=== PATIENT | female | born 1940 | race Caucasian/White ===

== ENCOUNTER → 2020-03-04 | Outpatient (CLI) | payer MEDICARE ==
[~2020-03-04] MED LIST: AMLODIPINE BESYL5 MG PO; APPLE CIDER VI300 MG; ASPIRIN325 MG PO; ASPIRIN81 MG; CALTRATE 600 W1 EACH; CLARITIN5 MG; LETROZOLE2.5 MG PO; MULTI-VITAMIN1 EACH; OSTEO BI-FLEX1 EACH; SIMVASTATIN40 MG PO; TART CHERRY CA1 EACH
--- NOTE | 2020-03-04 18:48 | Diagnostic Imaging Report ---
Bone Scan, three-phase and total body delayed imaging Reason for exam: 79 F with painful right knee prosthesis. Also pain in right hip and lower leg. Patient has history of breast cancer in 2014. Radiopharmaceutical: Tc-99m MDP 26.8 mCi IV LAC Comparison: None Following intravenous administration of the radiopharmaceutical, dynamic flow and immediate blood pool images of the knees followed by delayed total body and selected spot images were obtained. Flow and blood pool images show diffusely symmetric distribution of tracer activity to the to the knees with focal, very mild increased tracer along the tibial component of the right knee prosthesis . On the delayed images, very mildly increased tracer is also seen along the tibial component of the right knee prosthesis. There is no increased tracer activity in the adjacent soft tissues. Degenerative changes are noted in the left knee. The total body images show focal, markedly increased tracer in the right acetabulum. Otherwise, distribution of tracer activity is unremarkable throughout the skeletal system. No abnormal accumulation of tracer is seen in the soft tissues or urinary tract. Impression: 1. The very mild osteoblastic process surrounding the tibial component of the right knee prosthesis is likely physiologic. With absent increased tracer activity on the flow images, and no evidence of associated hyperemia, infection is unlikely, however, specificity of the finding could but increased with a labeled white blood cell study. 2. 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 This may be related to infection, inflammation (severe degenerative disease), post-traumatic changes or less likely, solitary bone metastasis. Correlative imaging may be warranted. Also consider referred pain in the right knee related to the changes in the right hip. Signed by: Dr. Rubi Goss M.D. on 03/04/2020 6:45 PM
== END ==
LOC: NM 10:39
PROVIDERS: ATTEND Specialist
DX: T84.092D Other mechanical complication of internal right knee prosthesis, subsequent encounter (principal)
CPT/HCPCS: 78306; A9503

== ENCOUNTER 2020-03-31 06:34 | Observation (INO) | payer MEDICARE, OTHER ==
[2020-03-27 10:27] LABS: BASOPHILS % 0.5 % (0.0-1.0); EOSINOPHILS % 0.7 % (0.0-6.0); HEMATOCRIT 36.2 % (34.2-44.1); HEMOGLOBIN 11.7 g/dL (12.0-16.0); LYMPHOCYTES # (AUTO) 1.8 (1.0-3.2); LYMPHOCYTES % 29.4 % (18.0-39.1); MEAN CORPUSCULAR HEMOGLOBIN 31.5 pg (28-32); MEAN CORPUSCULAR HGB CONC 32.3 g/dL (31-35); MEAN CORPUSCULAR VOLUME 97.3 fL (81-99); MONOCYTES # (AUTO) 0.4 (0.2-0.8); MONOCYTES % 5.9 % (4.4-11.3); NEUTROPHILS # (AUTO) 3.8 (2.1-6.9); NEUTROPHILS % 63.3 % (38.7-80.0); PLATELET COUNT 337 x10e3/uL (140-360); RED BLOOD COUNT 3.72 x10e6/uL (3.6-5.1); RED CELL DISTRIBUTION WIDTH 13.4 % (11.7-14.4)
--- NOTE | 2020-03-27 10:58 | Diagnostic Imaging Report ---
EXAMINATION: CHEST 2 VIEWS INDICATION: Pre-operative COMPARISON: None FINDINGS: LINES/TUBES:None LUNGS:The lungs are well-inflated. No focal consolidation or pulmonary edema. PLEURA:No pleural effusion or pneumothorax. MEDIASTINUM:The cardiomediastinal silhouette appears normal in size and shape. BONES/SOFT TISSUES:No acute osseous injury. Surgical clips at the right axilla. ABDOMEN:Large hiatal hernia. No free air under the diaphragm. IMPRESSION: No focal pneumonia or pulmonary edema. Large hiatal hernia. Signed by: Fredrick De La Torre MD on 03/27/2020 10:55 AM
[~2020-03-31 06:34] MED LIST changes: -CALTRATE 600 W1 EACH; +CALTRATE 600 W1 EACH PO; +HYDROXYCHLOROQ200 MG PO; +PREDNISONE5 MG PO
[2020-03-31] MEDS ORDERED: BACITRACIN 50,000 UNIT VIAL ONE (07:08)
[2020-03-31] MEDS ORDERED: VANCOMYCIN HCL 0 MG ONE (07:08)
[2020-03-31] MEDS ORDERED: TRANEXAMIC ACID 1,000 MG/10 ML ML ONE (07:09)
[2020-03-31] MEDS ORDERED: SODIUM CHLORIDE 0.9% 500ML 500 ML ONE (07:10)
[2020-03-31] MEDS ORDERED: DEXAMETHASONE SOD PHOS 10 MG/1 ML VIAL ONE (07:51)
[2020-03-31] MEDS ORDERED: CELECOXIB 200 MG CAP ONE (07:51)
[2020-03-31] MEDS ORDERED: GABAPENTIN 300 MG CAP ONE (07:52)
[2020-03-31] MEDS ORDERED: CEFAZOLIN SOD 1 GM/NS 50ML 100 ML IV ONE (07:52)
[2020-03-31] MEDS ORDERED: ROPIVACAINE 246.25 MG, EPINEPHRINE HCL 1:1000 1ML 0.5 MG, CLONIDINE HCL 0.08 MG, KETORO... INJ ONE ×5 (08:00)
[2020-03-31] MEDS ORDERED: BUPIVACAINE 7.5MG/ML /DEXTROSE 82.5MG/ML 2 ML AMP INJ ONE (08:31)
[2020-03-31] MEDS ORDERED: VANCOMYCIN HCL 500 MG ONE ×2 (11:13→11:15)
[2020-03-31] MEDS ORDERED: DIPHENHYDRAMINE HCL INJ 50 MG/ML VIAL IV PRN (12:00)
[2020-03-31] MEDS ORDERED: KETOROLAC TROMETHAMINE 30 MG/ML VIAL IV PRN (12:00)
[2020-03-31] MEDS ORDERED: ACETAMINOPHEN 650 MG SUPP PR PRN (12:00)
[2020-03-31] MEDS ORDERED: DOCUSATE SODIUM 100 MG CAP PO PRN (12:00)
[2020-03-31] MEDS ORDERED: HYDROCODONE/APAP 7.5MG-325MG 1 EA TAB PO PRN (12:00)
--- OUTSIDE RECORDS SUMMARY | 2020-03-31 13:23 | XMS REPORT ---
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
--- OUTSIDE RECORDS SUMMARY | 2020-03-31 13:23 | XMS REPORT | Clinical Summary ---
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 Active hydroxychloroquine Take 200 mg 0 (PLAQUENIL) 200 mg tablet by mouth daily. Active aspirin (ECOTRIN) 81 MG Take 81 mg by 0 enteric coated tablet mouth daily. Active loratadine (CLARITIN) 10 Take 10 mg by 0 mg tablet mouth daily. Active predniSONE (DELTASONE) 5 Take 5 mg by 0 mg tablet mouth daily. 09/12/2019 Discontinued (Stop Taking at Discharge) amLODIPine (NORVASC) 5 mg 1 tablet 9 09/12/2019 Discontinued (Stop Taking at Discharge) meloxicam (MOBIC) 15 mg TAKE 1 TABLET 2 tablet BY MOUTH ONCE 9 DAILY NEEDED WITH FOOD FOR 30 DAYS 05/16/2019 Discontinued (Error) meloxicam (MOBIC) 7.5 mg TAKE 1 TABLET 0 04/10 tablet BY MOUTH ONCE 9 DAILY NEEDED FOR PAIN 09/11/2019 Discontinued simvastatin (ZOCOR) 40 MG Take 40 mg by 1 05/0 tablet mouth 9 nightly. 08/10/2019 ciprofloxacin (CIPRO) 500 Take 1 tablet 14 tablet 0 MG tabletIndications: (500 mg 9 Urinary tract infection total) by without hematuria, site mouth 2 (two) unspecified times a day for 7 days. 08/24/2019 traMADol (ULTRAM) 50 mg Take 1 tablet 20 tablet 0 tabletIndications: acute (50 mg total) 9 pain by mouth every 6 (six) hours as needed for moderate pain for up to 10 days .Acute Pain. 09/11/2019 Discontinued UNABLE TO FIND Supplement 0 for dry eyes 08/22/2019 oxybutynin (DITROPAN) 5 Take 1 tablet 20 tablet 0 MG tablet (5 mg total) 9 by mouth 3 (three) times a day as needed for bladder spasms for up to 7 days. 08/19/2019 phenazopyridine Take 1 tablet 10 tablet 0 08/15/20 1 (PYRIDIUM) 200 MG tablet (200 mg 9 total) by mouth 3 (three) times a day as needed for bladder spasms (dysuria) for up to 4 days. 08/25/2019 acetaminophen-codeine Take 1 tablet 20 tablet 0 (TYLENOL WITH CODEINE #3) by mouth 9 300-30 mg per every 6 (six) tabletIndications: acute hours as pain needed for moderate pain for up to 10 days .Acute Pain. 09/15/2019 ciprofloxacin HCl (CIPRO) Take 1 tablet 6 tablet 0 250 MG tablet (250 mg 9 total) by mouth 2 (two) times a day for 3 days. Active Problems Problem Noted Date Dehydration 09/10/2019 Right ureteral stone 07/31/2019 Atrophic vaginitis 07/31/2019 Primary osteoarthritis of right hip 05/16/2019 Encounters Care Team Description Date Type Specialty Ginny Maddox RN 11/12/2019 Telephone Urology Te Delgado MD Dehydration (Primary Dx) 09/10/2019 Hospital General Internal Ny dicine - Encounter 09/12/2019 Te Delgado MD 09/10/2019 Orders Only General Internal Ny Eula Olivas MA Ureteral stone (Primary Dx) 08/30/2019 Orders Only General Surgery Ginny Maddox, ALISE 08/23/2019 Telephone Urology Eileen Green MD Su, Young, MD 08/15/2019 Anesthesia General Surgery Event Sam Rizzo MD CYSTO RIGHT URETEROSCOPY, LASER LITHOTR IPSY, RIGHT URETERAL STENT PLACEMENT 08/15/2019 Surgery General Surgery Rudi Molina MD Ureteral stone 08/15/2019 Hospital General Surgery Encounter Sam Rizzo MD Right ureteral stone (Primary Dx) 08/14/2019 Office Visit Urology Ginny Maddox RN Pain (Primary Dx) 08/14/2019 Orders Only Urology Sam Rizzo MD Right ureteral stone 08/03/2019 Hospital Radiology Encounter Ginny Maddox, ALISE 08/03/2019 Telephone Urology Ginny Maddox RN 08/03/2019 Telephone Urology Ginny Maddox RN Urinary tract infection without hematuri a, site unspecified (Primary Dx) 08/03/2019 Orders Only Urology Sam Rizzo MD Right ureteral stone (Primary Dx); Atrophic vaginitis 07/31/2019 Office Visit Urology Tato Duckworth MD Chronic pain of right knee (Primary Dx); Right hip pain; Primary osteoarthritis of right hip 05/16/2019 Office Visit Orthopedic Surgery after 03/31/2019 Social History Date Tobacco Use Types Packs/Day Years Used Never Smoker Smokeless Tobacco: Never Used Drinks/Week oz/Week Comments Alcohol Use Never Alcohol Habits Answer Date Recorded How often do you have a drink containing alcohol? Never 05/16/2019 How many drinks containing alcohol do you have on No t asked a typical day when you are drinking? How often do you have six or more drinks on one Not asked occasion? Sex Assigned at Date Recorded Not on file Industry Job Start Date Occupation Not on file Not on file Not on file Travel End Travel History Travel Start No recent travel history available. Last Filed Vital Signs Reading Time Taken Comments Vital Sign 136/64 09/12/2019 3:28 PM [facility] Blood Pressure 74 09/12/2019 3:28 PM [facility] Pulse 37.5 C (99.5 F) 09/12/2019 3:28 PM [facility] Temperature 16 09/12/2019 3:28 PM [facility] Respiratory Rate 95% 09/12/2019 3:28 PM [facility] Oxygen Saturation - - Inhaled Oxygen Concentration 70.8 kg (156 lb) 09/10/2019 6:23 PM [facility] Weight 162.6 cm (5' 4") 09/10/2019 6:23 PM [facility] Height 26.78 09/10/2019 6:23 PM [facility] Body Mass Index Plan of Treatment Health Maintenance Due Date Last Done Comments SHINGLES VACCINES (#1) 1988 65+ PNEUMOCOCCAL VACCINE 2003 (1 of 2 - PCV13) INFLUENZA VACCINE 05/31/2020 Implants Device Identifier Shelf Expiration Date Model / Serial / L ot Implanted Type Area Manufactur er 05/14/2022 192 133 / / [id number] Stent Uretl Polkari Ult 2drmtr 6fr Urological Right: Ureter , BSC 26cm Hydroplus W/O Gw - [id number] Implants [place] [facility] Implanted: Qty: 1 on 08/15/2019 by or Sets Sam Rizzo MD at [facility] Procedures Comments Procedure Name Priority Date/Time Associated Diag nosis HC ECHO 2-D F/UP LIMITED Routine 09/12/2019 6:07 PM [facility] ESTIMATED GFR STAT 09/12/2019 11:40 AM [facility] HC COMPLETE BLD COUNT STAT 09/12/2019 W/AUTO DIFF 11:40 AM [facility] BASIC METABOLIC PANEL STAT 09/12/2019 11:40 AM [facility] ARTERIAL BLOOD GAS Routine 09/12/2019 11:32 AM [facility] NM HEPATOBILIARY W PHARM STAT 09/12/2019 9:35 AM [facility] US GALLBLADDER STAT 09/11/2019 5:20 PM [facility] US RENAL Routine 09/11/2019 5:20 PM [facility] TTE COMPLETE, WO Routine 09/11/2019 CONTRAST, W DOPPLER 4:52 PM [facility] ([id number]) CT CHEST WO CONTRAST STAT 09/11/2019 10:02 AM [facility] GRAM STAIN Routine 09/11/2019 1:22 AM [facility] URINE CULTURE Routine 09/11/2019 1:22 AM [facility] SODIUM LEVEL, URINE, Routine 09/11/2019 RANDOM 1:02 AM [facility] CREATININE LEVEL, URINE, Routine 09/11/2019 RANDOM 1:02 AM [facility] PROTEIN, URINE, RANDOM Routine 09/11/2019 1:02 AM [facility] URINALYSIS SCREEN AND Routine 09/11/2019 MICROSCOPY, WITH REFLEX 1:02 AM [facility] TO CULTURE NM LUNG VENTILATION STAT 09/10/2019 PERFUSION 7:35 PM [facility] XR CHEST 2 VW Routine 09/10/2019 5:14 PM [facility] ESTIMATED GFR Routine 09/10/2019 3:45 PM [facility] TROPONIN Routine 09/10/2019 3:45 PM [facility] D-DIMER Routine 09/10/2019 3:45 PM [facility] B NATRIURETIC PEPTIDE Routine 09/10/2019 3:45 PM [facility] COMPREHENSIVE METABOLIC Routine 09/10/2019 PANEL 3:45 PM [facility] HC COMPLETE BLD COUNT Routine 09/10/2019 W/AUTO DIFF 3:45 PM [facility] ECG 12-LEAD Routine 09/10/2019 3:33 PM [facility] FL < 1 HOUR Routine 08/15/2019 3:11 PM CDT SURGICAL PATHOLOGY Routine 08/15/2019 REQUEST 2:33 PM CDT CALCULI ANALYSIS WITH Routine 08/15/2019 PHOTO 2:33 PM CDT ANESTHESIA INTUBATION Routine 08/15/2019 2:00 PM CDT ESTIMATED GFR STAT 08/15/2019 11:49 AM CDT PROTHROMBIN TIME WITH INR STAT 08/15/2019 11:49 AM CDT BASIC METABOLIC PANEL STAT 08/15/2019 11:49 AM CDT HC COMPLETE BLD COUNT STAT 08/15/2019 W/AUTO DIFF 11:49 AM CDT ECG PRE/POST OP STAT 08/15/2019 11:[address] RENAL STONE PROTOCOL Routine 08/03/2019 Right ureteral stone 10:11 AM CDT GRAM STAIN Routine 07/31/2019 10:59 AM CDT URINE CULTURE Routine 07/31/2019 Right ureteral stone 10:59 AM CDT XR HIP 2-3 VIEWS RIGHT Routine 05/16/2019 Right h ip pain 9:35 AM CDT XR KNEE 4+ VW RIGHT Routine 05/16/2019 Chronic pa in of right 8:57 AM CDT knee XR LEG LENGTH EVALUATION Routine 05/16/2019 Chron ic pain of right 8:57 AM CDT knee after 03/31/2019 Results * Cv echo 2d limited or follow up study (09/12/2019 6:07 PM [facility]) BSA Mckinnon 1.79 m2 [facility] BSA 1.75 m2 [facility] BSA Haycock 1.78 m2 [facility] BMI 24.96 kg/m2 [facility] Pt Size 165.10 [facility] Pt Wt 68.04 [facility] MAX Pred HR 138.59 [facility] 85 of MPHR 117.80 [facility] Calc MPHR 138.59 bpm [facility] Pred Exer Dur 5.59 [facility] R1 Pred METS R1 4.12 [facility] Specimen Narrative Performed At This result has an attachment that is n ot available. Performing Organization Address City/State/Zipcode Ph one Number [facility] [address] [place] [address], * Estimated GFR (09/12/2019 11:40 AM [facility]) Only the most recent of 3 results within the time period is included. Estimated GFR 85 mL/min/1.73 m2 [place] Comment: [place] Catergory Units [facility] G1 >=90 Normal or high G2 60-89 Mildly decreased G3a 45-59 Mildly to moderately decreased G3b 30-44 Moderately to severely decreased G4 15-29 Severely decreased G5 <15 Kidney failure The eGFR was calculated using the Chronic Kidney Disease Epidemiology Collaboration (CKD-EPI) equation. Interpretation is based on recommendations of the National Kidney Foundation-Kidney Disease Outcomes Quality Initiative (NKF-KDOQI) published in 2014. Specimen Plasma specimen Performing Organization Address City/State/[facility] Ph one Number [facility] [address] [place] [address] [address] [facility] [address] [place] [address] HOSPITAL * CBC with platelet and differential (09/12/2019 11:40 AM [facility]) Only the most recent of 3 results within the time period is included. WBC 4.6 4.2 - 11.0 k/uL [facility] RBC 3.69 (L) 4.04 - 5.86 m/uL [facility] HGB 11.3 (L) 11.5 - 15.3 g/dL [facility] HCT 35.6 34.0 - 45.0 % [facility] MCV 96.5 80.0 - 98.0 fL [facility] MCH 30.6 27.0 - 34.0 pg [facility] MCHC 31.7 31.5 - 36.5 g/dL [facility] RDW - SD 46.1 37.0 - 51.0 fL [facility] MPV 9.6 7.4 - 10.4 fL [facility] Platelet count 278 150 - 400 k/uL [facility] Nucleated RBC 0.00 /100 WBC [facility] Neutrophils 56.1 36.0 - 66.0 % [facility] Lymphocytes 32.8 24.0 - 44.0 % [facility] Monocytes 8.7 (H) 0.0 - 6.0 % [facility] Eosinophils 0.0 0.0 - 6.0 % [facility] Basophils 1.1 0.0 - 1.2 % [facility] Immature 1.3 (H) 0.0 - 1.0 % [place] granulocytes [facility] Specimen Blood Performing Organization Address City/State/Zipcode Ph one Number [facility] [address] [place] [address] [address] [facility] [address] [place] [address] * Basic metabolic panel (09/12/2019 11:40 AM [facility]) Only the most recent of 2 results within the time period is included. Sodium 142 135 - 150 mEq/L [facility] Potassium 3.6 3.5 - 5.0 mEq/L [facility] Chloride 107 98 - 112 mEq/L [facility] CO2 23 (L) 24 - 31 mmol/L [facility] Anion gap 12@ANIO 7 - 15 mEq/L [facility] BUN 11 7 - 18 mg/dL [facility] Creatinine 0.60 0.50 - 0.90 mg/dL [facility] Glucose 104 (H) 65 - 100 mg/dL [facility] Calcium 9.6 8.8 - 10.2 mg/dL [facility] Specimen Plasma specimen Performing Organization Address City/State/Zipcode Ph one Number [facility] [address] [place] [address] PATHOLOGY AND GENOMIC MEDICINE [address] * Arterial blood gas (09/12/2019 11:32 AM [facility]) pH, arterial 7.480 (H) 7.350 - 7.450 units [facility] pCO2, arterial 36.2 35.0 - 45.0 mmHg [facility] pO2, arterial 90.6 (H) 80.0 - 90.0 mmHg [facility] O2 saturation, 98.4 95.0 - 100.0 % [facility] Base excess, 3.4 mEq/L [facility] Bicarbonate 26.9 21.0 - 28.0 mEq/L [facility] O2 content 15.2 VOL% [facility] FiO2, inspired 21.0 % [place] O2% [facility] Carboxyhemoglob 0.5 0.0 - 1.4 % [place] in Comment: [place] Reference Ranges: [place] Carboxyhemoglobin [facility] Non smoker: 0.0 - 2.0% Smoker: 2.1 - 5.0% Heavy smoker: 5.1 - 9% Methemoglobin 0.6 0.0 - 1.0 % [facility] Hemoglobin, 11.0 (L) 12.0 - 16.0 g/dL [place] blood gas [facility] pO2, A-a 19.7 mmHg [facility] Specimen Blood Performing Organization Address City/State/[facility] Ph one Number [facility] [address] [address] [address] [facility] [address] * [place] Hepatobiliary W Pharm (HIDA Scan w Pharm) (09/12/2019 9:35 AM [facility]) Specimen Narrative Performed At PROCEDURE: NM HEPATOBILIARY W PHARM (HIDA SCAN W PH ARM) [facility] INDICATION: Cholelithiasis. TECHNIQUE: The patient was injected wit h 5 mCi of Tc-99m mebrofenin (Choletec), IV, followed by dynamic imaging of the abdomen in the anterior projection for 1 hour. The patient was then given a 60 m inute intravenous infusion of CCK 1.5 ug while dynamic imaging of the abdomen was performed; t hese images were used to calculate the gallbladder ejection fraction. FINDINGS: Hepatocellular uptake is norm al, with normal excretion into the biliary tree. Tracer is seen within [facility] gallbladder and small bowel by one hour. After CCK infusion, there is no rmal contraction of the gallbladder. Gallbladder ejection fraction is 40%, (normal is greater than 30%). IMPRESSION: 1. No evidence for acute cholecystitis, cystic duct obstruction, or common bile duct obstruction. 2. Normal gallbladder ejection fraction . [id number] Dictated and approved by radiology resi dent/fellow: Pedro Fraser M.D. I, Britton Mathew, personally reviewed t images and resident's/fellow's findings and agree with the final repor t. Procedure Note Interface, Radiology Results Incoming - 09/12/2019 10:38 AM [facility] PROCEDURE: NM HEPATOBILIARY W PHARM (HIDA SCAN W PHARM) INDICATION: Cholelithiasis. TECHNIQUE: The patient was injected with 5 mCi of Tc-99m mebrofenin (Choletec), IV, followed by dynamic imaging of the abdomen in the anterior projection for 1 hour. The patient was then given a 60 minute intravenous infusion of CCK 1.5 ug while dynamic imaging of the abdomen was performed; these images were used to calculate the gallbladder ejection fraction. FINDINGS: Hepatocellular uptake is normal, with normal excretion into the biliary tree. Tracer is seen within the gallbladder and small bowel by one hour. After CCK infusion, there is normal contraction of the gallbladder. Gallbladder ejection fraction is 40%, (normal is greater than 30%). IMPRESSION: 1. No evidence for acute cholecystitis, cystic duct obstruction, or common bile duct obstruction. 2. Normal gallbladder ejection fraction. [facility]-[id number] Dictated and approved by executive vice president of sales/fellow: Pedro Fraser M.D. I, Britton Mathew, personally reviewed the images and resident's/fellow's findings and agree with the final report. Performing Organization Address City/State/[facility] Ph one Number [facility] [address] [place] [address] * US Gallbladder (09/11/2019 5:20 PM [facility]) Specimen Narrative Performed At Examination: [facility] Clinical history: Cholelithiasis Comparison: None IMPRESSION: Transverse and longitudin al sonographic images were obtained through the gallbladder fossa. 1. Stones and sludge are present with in an otherwise normal-appearing gallbladder without pericholecystic flu id or gallbladder wall thickening. 2. The common duct is within normal l imits at 5mm 3. The portal vein is patent. Gallbladder measurement guidelines *Gallbladder distention: Greater than 9 x 4 cm (longitudinal by transverse dimension) *Wall thickening: Greater than 3 mm *Common bile duct dilatation: Greater t robbins 6 mm (allowing 1 additional millimeter for each decade of age great er than 60 years) *Common bile duct dilatation status pos t cholecystectomy: Greater than 10 mm *Portal vein dilatation: Greater than 1 .3 cm (measurements are variable and dependent upon hydration status and res piration) [facility]-[id number] Procedure Note Interface, Radiology Results Incoming - 09/11/2019 5:36 PM [facility] Examination: US GALLBLADDER Clinical history: Cholelithiasis Comparison: None IMPRESSION: Transverse and longitudinal sonographic images were obtained through the gallbladder fossa. 1. Stones and sludge are present within an otherwise normal-appearing gallbladder without pericholecystic fluid or gallbladder wall thickening. 2. The common duct is within normal santiago its at 5mm 3. The portal vein is patent. Gallbladder measurement guidelines *Gallbladder distention: Greater than 9 x 4 cm (longitudinal by transverse dimension) *Wall thickening: Greater than 3 mm *Common bile duct dilatation: Greater than 6 mm (allowing 1 additional millimeter for each decade of age greater than 60 years) *Common bile duct dilatation status post cholecystectomy: Greater than 10 mm *Portal vein dilatation: Greater than 1.3 cm (measurements are variable and dependent upon hydration status and respiration) [facility]-[id number] Performing Organization Address City/State/Zipcode Ph one Number [facility] [address] [place] [address] * US Renal (09/11/2019 5:20 PM [facility]) Specimen Narrative Performed At EXAMINATION: US RENAL [facility] CLINICAL HISTORY: Renal failure acu te (kidney injury) COMPARISON: None. FINDINGS: The kidneys are normal in size and echo genicity. There is no evidence of any solid renal mass, calculi, or hydroneph rosis. The right kidney measures 10.56 cm X 5.59 cm X 4.57 cm The left kidney measures 10.84 cm X 5.67 cm X 5.35 cm. There is a 1.4 cm cyst seen within the left kidney. The bladder is decompressed at the time of examination. IMPRESSION: 1.The kidneys of normal size and echote xture. 2. There is no hydronephrosis nor any s olid renal mass. 3. There is a simple 1.4 cm cyst seen w ithin the left kidney. 4. The bladder is decompressed at the t kirt of examination. [id number] Procedure Note Hm Interface, Radiology Results Incoming - 09/11/2019 8:34 PM [facility] EXAMINATION: US RENAL CLINICAL HISTORY: Renal failure acute (kidney injury) COMPARISON: None. FINDINGS: The kidneys are normal in size and echogenicity. There is no evidence of any solid renal mass, calculi, or hydronephrosis. The right kidney measures 10.56 cm X 5.59 cm X 4.57 cm The left kidney measures 10.84 cm X 5.67 cm X 5.35 cm. There is a 1.4 cm cyst seen within the left kidney. The bladder is decompressed at the time of examination. IMPRESSION: 1.The kidneys of normal size and echotex ture. 2. There is no hydronephrosis nor any so lid renal mass. 3. There is a simple 1.4 cm cyst seen wi thin the left kidney. 4. The bladder is decompressed at the ti me of examination. [id number] Performing Organization Address City/State/Zipcode Ph one Number [facility] [address] [place] [address] * Echocardiogram complete w contrast and 3D if needed (09/11/2019 4:52 PM [facility]) Ao Root 3.57 cm [facility] Diameter AoV Area, Vmax 2.92 cm2 [facility] AoV Area, VTI 3.11 cm2 [facility] AoV Mean PG 3.18 mmHg [facility] AoV Peak PG 6.29 mmHg [facility] AoV Vmax 1.26 m/s [facility] AoV VTI 0.27 m [facility] BSA Mckinnon 1.79 m2 [facility] BSA 1.75 m2 [facility] IVS,d 1.35 cm [facility] IVS/LVPW,2D 1.04 [facility] Left Atrium 3.40 cm [facility] Dimension Anterior LV,d 4.05 cm [facility] LV EF,2D 57.91 % [facility] LV,s 3.04 cm [facility] LVOT area 3.46 cm2 [facility] LVOT Diam,S 2.10 cm [facility] LVOT Vmax 1.08 m/s [facility] LVOT VTI 0.24 m [facility] LVPWD,d 1.29 cm [facility] PV Pk Grad 4.47 mmHg [facility] PV VMAX 1.06 m/s [facility] TR Vpeak 2.29 mm/s [facility] MV E A ratio 0.62 [facility] TR pk grad 19.70 mmHg [facility] AoV area i VTI 1.78 cm2/m2 [facility] BSA [place] BMI 24.96 kg/m2 [facility] E wave 131.48 msec [facility] decelartion time MV Peak A Boris 1.29 m/s [facility] MV valve area p 3.81 cm2 [facility] 1/2 method MV Peak E Boris 0.73 m/s [facility] MV stenosis 57.74 ms [facility] pressure 1/2 time AV LVOT peak 4.47 mmHg [facility] gradient Ascending aorta 3.74 cm [facility] Ao Root 3.57 cm [facility] Diameter LV SYS VOL 36.08 ml [facility] LV [place] VOL 72.24 ml [facility] LV SI Teich 2D 20.65 ml/m2 [facility] LV SV Teich 2D 36.15 ml [facility] LV Vol s Teich 36.08 ml [facility] PSAX LVOT SI 47.23 ml/m2 [facility] BSA Haycock 1.78 m2 [facility] AoV Vmn 0.83 [facility] IVS s 2D 1.59 [facility] LV FS Teich 2D 25.06 [facility] MV AE ratio 1.62 [facility] LV FS Cube 2D 25.06 [facility] LVOT Vmn 0.78 [facility] Pt Size 165.10 [facility] Pt Wt 68.04 [facility] Aov area Vmn 3.11 cm2 [facility] LA A_P score P 1.67 [facility] LVOT mean grad 2.69 mmHg [facility] MAX Pred HR 138.59 [facility] 85 of MPHR 117.80 [facility] AoV area I VMN 1.78 cm2/m2 [facility] bsa Calc MPHR 138.59 bpm [facility] IVS pct thck 18.07 % [facility] PLAX LV SI Cube 2D 22.03 ml/m2 [facility] LV SV Cube 2D 38.57 ml [facility] LV vol d cube 66.60 ml [facility] 2D LV vol s cube 28.03 ml [facility] 2D LVPW pct thck 24.34 % [facility] PLAX LVPW s PLAX 1.61 cm [facility] MV Decel slope 5.52 m/s2 [facility] Pred Exer Dur 5.59 [facility] R1 Pred METS R1 4.12 [facility] LA Vol MOD A4C 64.11 ml [facility] Velocity Ratio 0.86 m/s [facility] (V1/V2) EF 50.06 % [facility] E/A ratio 0.57 [facility] Specimen Narrative Performed At [facility] Left ventricular systolic function i s normal. There is mild left ventricular reji ntric hypertrophy. Left Ventricular ejection fraction i s 55 - 60%. Left atrium size is mildly dilated. Spectral Doppler shows impaired rela xation pattern of left ventricular diastolic filling. Performing Organization Address City/State/Zipcode Ph one Number [facility] [address] [place] [address], [place] * CT Chest Wo Contrast (09/11/2019 10:02 AM [facility]) Specimen Narrative Performed At EXAMINATION: [facility] CT CHEST WO CONTRAST CLINICAL HISTORY: Acute resp illness 38 years old TECHNIQUE: Multiple axial images of t he chest were obtained without intravenous contrast. The lack of intra venous contrast reduces the sensitivity of detecting solid organ disease and ev aluating vasculature. Sagittal and coronal computerized reformatted images were also obtained. CT imaging w as performed with iterative reconstruction techniques and/or automa aiden exposure control to reduce radiation dose. COMPARISON: To a chest x-ray from 09/10/2019 IMPRESSION: 1.Postoperative changes involving the r ight breast are present. 2.Gallstones noted within the gallbladd er, without evidence of biliary ductal dilatation. A large hiatal hernia is pr esent. 3.No evidence of hilar or mediastinal l ymphadenopathy. The partially visualized right kidney demonstrates pyelectasis. Fibrotic changes presumably related to radiation are noted in the right lung a pex. 4.Some minimal bronchiectasis is presen t in both lung bases. The lungs otherwise are clear. 5.The bones are moderately osteopenic a nd moderate wedge compression is noted involving a lower thoracic vertebral armida dy. [id number] Procedure Note Interface, Radiology Results Incoming - 09/11/2019 10:07 AM HELP AID EXAMINATION: CT CHEST WO CONTRAST CLINICAL HISTORY: Acute resp illness 38 years old TECHNIQUE: Multiple axial images of the chest were obtained without intravenous contrast. The lack of intravenous contrast reduces the sensitivity of detecting solid organ disease and evaluating vasculature. Sagittal and coronal computerized reformatted images were also obtained. CT imaging was performed with iterative reconstruction techniques and/or automated exposure control to reduce radiation dose. COMPARISON: To a chest x-ray from 09/10/2019 IMPRESSION: 1.Postoperative changes involving the ri ght breast are present. 2.Gallstones noted within the gallbladde r, without evidence of biliary ductal dilatation. A large hiatal hernia is present. 3.No evidence of hilar or mediastinal ly mphadenopathy. The partially visualized right kidney demonstrates pyelectasis. Fibrotic changes presumably related to radiation are noted in the right lung apex. 4.Some minimal bronchiectasis is present in both lung bases. The lungs otherwise are clear. 5.The bones are moderately osteopenic an d moderate wedge compression is noted involving a lower thoracic vertebral body. [id number] Performing Organization Address [facility] Ph one Number [facility] [address] [place] [address] * Gram stain (09/11/2019 1:22 AM HELP AID) Only the most recent of 2 results within the time period is included. Gram stain No WBC's or organisms seen. MORLEY result Comment: MORMON Specimen Information HOSPITAL Specimen Source: Urine Specimen Site: Clean catch Specimen Urine Performing Organization Address [facility] one Number [facility] DEPARTMENT OF [address] [place] [address] PATHOLOGY AND GENOMIC MEDICINE [address] * Urine culture (09/11/2019 1:22 AM HELP AID) Only the most recent of 2 results within the time period is included. Urine culture Mixed brenda <=10-3 col/cc (A) MARTINEZ isolate Comment: MORMON Specimen Information HOSPITAL Specimen Source: Urine Specimen Site: Clean catch Urine culture Pseudomonas aeruginosa TYSON isolate 10-4 cfu/ml MORMON [facility] HOSPITAL characteristics of this assay on this isolate were validated by the Microbiology Laboratory at [facility]. This source has not been approved by the U.S. Food and Drug Administration. The results are not intended to be used as the sole means for clinical diagnosis or patient management. The Microbiology Laboratory is authorized under the clinical Laboratory Improvement Amendments of 1988 (CLIA-88) to perform high complexity testing. (A) Specimen Urine Antibiotic Method Susceptibility Organism Amikacin GRISELDA <=4 mcg/mL: Susceptible Pseudomonas aeruginosa Aztreonam GRISELDA 2 mcg/mL: Susceptible Pseudomonas aeruginosa Ceftazidime GRISELDA 1 mcg/mL: Susceptible Pseudomonas aeruginosa Ciprofloxacin GRISELDA <=0.5 mcg/mL: Susceptible Pseudomonas aeruginosa Cefepime GRISELDA <=0.5 mcg/mL: Susceptible Pseudomonas aeruginosa Gentamicin GRISELDA 2 mcg/mL: Susceptible Pseudomonas aeruginosa Imipenem GRISELDA 1 mcg/mL: Susceptible Pseudomonas aeruginosa Levofloxacin GRISELDA <=1 mcg/mL: Susceptible Pseudomonas aeruginosa Meropenem GRISELDA <=0.125 mcg/mL: Susceptible Pseudomonas aeruginosa Tobramycin GRISELDA <=0.5 mcg/mL: Susceptible Pseudomonas aeruginosa Piperacillin/Tazobactam GRISELDA 4/4 mcg/mL: Susceptible Pseudomonas aeruginosa Performing Organization Address City/State/Zipcode Ph one Number [facility] DEPARTMENT OF [address] [place] [address] PATHOLOGY AND GENOMIC MEDICINE [place] [id number] [place] [id number] HOSPITAL * Urinalysis screen and microscopy, with reflex to culture (09/11/2019 1:02 AM HELP AID) Specimen site Clean catch [facility] Color, UA Colorless [facility] Appearance, UA Clear [facility] Specific 1.003 1.001 - 1.035 MORLEY gravity, [facility] pH, UA 6.0 5.0 - 8.5 [facility] Protein, UA Negative Negative [facility] Glucose, UA 1+ (A) Negative [facility] Ketones, UA Negative Negative [facility] Bilirubin, UA Negative Negative [facility] Blood, UA Negative Negative [facility] Nitrite, UA Negative Negative [facility] Urobilinogen, Negative <2.0 [facility] Leukocyte Moderate (A) Negative [place] esterase, UA [facility] Epithelial Few /HPF MORLEY cells, UA [facility] WBC, UA 10 (A) 0 - 5 /HPF [facility] RBC, UA 1 0 - 5 /HPF [facility] Bacteria, UA None seen None seen [facility] Yeast, UA None seen [facility] Yeast with None seen [facility] Specimen Urine Performing Organization Address City/State/Ziplade Ph one Number [facility] DEPARTMENT OF [address] [place] [address] [facility] [address] [place] [address] HOSPITAL * Sodium level, urine, random (09/11/2019 1:02 AM HELP AID) Sodium, urine, 31 (A) mEQ/L [facility] Specimen Urine Performing Organization Address City/[facility] Ph one Number [facility] DE[facility] OF [address] [place] [address] [address] [facility] [address] * Protein, urine, random (09/11/2019 1:02 AM HELP AID) Protein, urine 5 (A) mg/dL [facility] Specimen Urine Performing Organization Address City/[facility] Ph one Number [facility] DE[facility] OF [address] [place] [address] PATH[address] MEDICINE [facility] [address] * Creatinine level, urine, random (09/11/2019 1:02 AM HELP AID) Creatinine, 29 mg/dL [facility] Urine Performing Organization Address City/[facility] Ph one Number [facility] DEPARTMENT OF [address] [place] [address] [address]IC[address] [facility] [address] [place] [address] * NM Lung Ventilation Perfusion (09/10/2019 7:35 PM HELP AID) Specimen Narrative Performed At PROCEDURE: NM LUNG VENTILATION PERFUSION [facility] INDICATION: PE suspected. COMPARISON: CXR dated same day 1701. TECHNIQUE: Planar ventilation images were acquired after the inhalation of 15 mCi of Xe-133 gas. Planar perfusion vince ges were acquired after the IV administration of 5 mCi of Tc-99m MAA. FINDINGS: Small to moderate sized, ma tched defects in the lung periphery. No mismatched defects. Prominent renal a nd visceral uptake. IMPRESSION: 1. Low probability for PE. 2. Possible right to left shunt. [facility]-[id number] Procedure Note Interface, Radiology Results Incoming - 09/10/2019 9:55 PM HELP AID PROCEDURE: NM LUNG VENTILATION PERFUSION INDICATION: PE suspected. COMPARISON: CXR dated same day 1701. TECHNIQUE: Planar ventilation images were acquired after the inhalation of 15 mCi of Xe-133 gas. Planar perfusion images were acquired after the IV administration of 5 mCi of Tc-99m MAA. FINDINGS: Small to moderate sized, matched defects in the lung periphery. No mismatched defects. Prominent renal and visceral uptake. IMPRESSION: 1. Low probability for PE. 2. Possible right to left shunt. [facility]-[id number] Performing Organization Address [facility] Ph one Number [facility] [address] [place] [address] * XR Chest 2 Vw (09/10/2019 5:14 PM HELP AID) Specimen Narrative Performed At EXAMINATION: [facility]: Vega XR CHEST 2 VW images are submitted COMPARISON: NONE FINDINGS: Surgical clips projecting over right ch est port. Heart and mediastinum: Tortuous thora cic aorta. Hiatal hernia. Lungs: The lungs are well inflated an d clear. There is no evidence of pneumonia or pulmonary edema. Pleura: There is no pleural effusion or pneumothorax. Bones: Age-indeterminate L1 and L2 co mpression fractures. IMPRESSION: 1. Negative for acute cardiopulmonary d isease. 2. Hiatal hernia. 2. Age-indeterminate compression fractu re of L1 and L2. [id number] Procedure Note [facility], Radiology Results Incoming - 09/10/2019 5:57 PM HELP AID EXAMINATION: XR CHEST 2 VW CLINICAL HISTORY: Vega XR CHEST 2 VW images are submitted COMPARISON: NONE FINDINGS: Surgical clips projecting over right chest port. Heart and mediastinum: Tortuous thoracic aorta. Hiatal hernia. Lungs: The lungs are well inflated and clear. There is no evidence of pneumonia or pulmonary edema. Pleura: There is no pleural effusion or pneumothorax. Bones: Age-indeterminate L1 and L2 compression fractures. IMPRESSION: 1. Negative for acute cardiopulmonary di sease. 2. Hiatal hernia. 2. Age-indeterminate compression fractur e of L1 and L2. [facility]-[id number] Performing Organization Address [facility] one Number [facility] [address] [place] [address] * Troponin (09/10/2019 3:45 PM HELP AID) Troponin 0.015 0.000 - 0.040 ng/mL MORLEY Comment: MOR[facility] changed methodology effective: HOSPITAL 03/06/2019 at 10:00 am The new method has a 99th percentile cutoff of 0.040 ng/mL Specimen Plasma specimen Performing Organization Address City/[facility] Ph one Number [facility] DE[facility]MENT OF [address] [place] [address] [facility] [address] * D-dimer (09/10/2019 3:45 PM HELP AID) [facility] D-dimer 3.22 (H) 0.00 - 0.40 ug/mL MORLEY Comment: FEU MORMON Units are ug/ml Fibrinogen MONTICELLO Equivalent Unit. [facility] When combined with low clinical probability, D-dimer results of less than 0.5 ug/ml FEU have a good negative predictive value in excluding PE or DVT. For D-dimer results greater than 0.5 ug/ml FEU further testing is indicated if PE or DVT is suspected clinically. Elevated D-dimer results have been reported in DVT, PE, and DIC cases and may indicate the presence of a clot. D-dimer results may be elevated due to old age, , inflammatory diseases, trauma, post-operative states, sepsis, and malignancies. Specimen Blood Performing Organization Address [facility] Ph one Number [facility] DE[facility] OF [address] [place] [address] [address] [facility] [address] * B natriuretic peptide (09/10/2019 3:45 PM HELP AID) [facility] BNP 59 0 - 100 pg/mL [facility] Specimen Blood Performing Organization Address City/[facility] Ph one Number [facility] DEPARTMENT OF [address] [address] [address] [facility] [address] * Comprehensive metabolic panel (09/10/2019 3:45 PM HELP AID) [facility] Sodium 140 135 - 150 mEq/L [facility] Potassium 3.6 3.5 - 5.0 mEq/L [facility] Chloride 103 98 - 112 mEq/L [facility] CO2 24 24 - 31 mmol/L [facility] Anion gap 13@ANIO 7 - 15 mEq/L [facility] BUN 18 7 - 18 mg/dL [facility] Creatinine 1.20 (H) 0.50 - 0.90 mg/dL [facility] Glucose 96 65 - 100 mg/dL [facility] Calcium 10.3 (H) 8.8 - 10.2 mg/dL [facility] Protein 6.6 6.3 - 8.3 g/dL [facility] Albumin 3.1 (L) 3.5 - 5.0 g/dL [facility] A/G ratio 0.9 0.7 - 3.8 [facility] Alkaline 53 0 - 104 U/L [place] phosphatase [facility] AST 27 10 - 35 U/L [facility] ALT 13 5 - 50 U/L [facility] Total bilirubin 0.3 0.2 - 1.2 mg/dL [facility] Specimen Plasma specimen Performing Organization Address City/[facility] Ph one Number [facility] DE[facility] OF [address] [place] [place] [address] PATHOLOGY AND GENOMIC MEDICINE [address] * ECG 12 lead (09/10/2019 3:33 PM HELP AID) Ventricular 69 [facility] rate Atrial rate 69 [facility] MN interval 162 [facility] QRSD interval 94 [facility] QT interval 432 [facility] QTC interval 462 [facility] P axis 1 33 [facility] QRS axis 1 1 [facility] T wave axis 6 [facility] EKG impression Sinus rhythm with premature [facility] MUSE atrial complexes-Voltage criteria for left ventricular hypertrophy-Inferior infarct , age undetermined-Abnormal ECG-In automated comparison with ECG of 15-AUG-2019 11:41,-premature atrial complexes are now present- Specimen Narrative Performed At This result has an attachment that is n ot available. Performing Organization Address City/[facility]/Zipcode Ph one Number [facility] MUSE [address] [place] [address] * [place] < 1 Hour (08/15/2019 3:11 PM CDT) Specimen Narrative Performed At IMPRESSION: C-armFluoroscopy under 1 hour was provi ded in the OR forthe [facility] referring physician. A radiologist wa s not present during the procedure. Refer to the Operative report issued by the p erforming provider for procedure details. Procedure Note Interface, Radiology Results Incoming - 08/15/2019 3:15 PM CDT IMPRESSION: C-armFluoroscopy under 1 hour was provided [facility] the [facility]. A radiologist was not present during the procedure. Refer to the Operative report issued by the performing provider for procedure details. Performing Organization Address City/State/[facility] Ph one Number [facility] [address] [place] [address] * Calculi analysis with photo (08/15/2019 2:33 PM CDT) Calculi mass 24 mg [facility] Calculi number 3 [facility] Calculi size Various mm [facility] Calculi See Note [facility] descrption Comment: Specimen consists of three, various sized (1 mm to 9 mm), brown/tilley, irregular calculi fragments. Calculi See Note [facility] composition Comment: Calculi composed primarily of: 10% calcium oxalate monohydrate, 80% calcium oxalate dihydrate, and 10% calcium phosphate (hydroxy- and carbonate- apatite). INTERPRETIVE INFORMATION: Calculi (Stone) analysis Calculi are the products of physiological processes that yield crystalline compounds in a matrix of biological compounds and blood. Matrix components are not reported. The clinically significant crystalline components identified in calculi specimens are reported. Gross description may not be consistent with composition determined by FTIR analysis. EER calculi See Note [facility] (stone) Comment: analysis and Access [employer] Enhanced Report photo using either link below: -Direct access: [email or web address] -Enter Username, Password: [email or web address] Username: [email or web address] Password: [email or web address] Performed by [employer], [address] [place] [address],[place] [address] [email or web address], Alberto Mahmood MD, Lab. Director Specimen Serum Narrative Performed At [id number] [facility] URETER STONES Performing Organization Address City/[facility]ode Ph one Number [facility] [address] [place] [address] HM [facility] [address] [place] [address] * Surgical pathology request (08/15/2019 2:33 PM CDT) [facility] OF PATHOLOGY AND GENOMIC MEDICINE Surgical See link below for PDF Lab [facility] DEPAR TMENT pathology Report OF PATHOLOGY report AND GENOMIC MEDICINE Result status This is Final Report for [facility] DE[facility] ENT [id number] OF PATHOLOGY AND GENOMIC MEDICINE Specimen Performing Organization Address [facility] Ph one Number [facility] DEPARTMENT OF [facility] [place] [address] PATHOLOGY AND GENOMIC MEDICINE * Airway (08/15/2019 2:00 PM CDT) Narrative Performed At Chase Chacko CRNA 2:01 PM Airway Performed by: Chase Chacko CRNA Authorized by: Chase Chacko CRNA Final Airway Type: Supraglottic airwa y Final LMA: Unique LMA Size: 4 Number of Attempts at Approach: 1 * Prothrombin time with INR (08/15/2019 11:49 AM CDT) Prothrombin 13.0 11.5 - 14.5 sec [facility] INR 1.01 [place]ORLEY Comment: MORMON For patients on anticoagulant MONTICELLO therapy, reference ranges HOSPITAL below: Indication: INR Value Treatment of Venous Thrombosis, 2.0-3.0 pulmonary emboli, or prophylaxis of a venous thrombosis, or systemic emboli. High dose, high risk patients 3.0-4.5 with mechanical valves. NOTE: INR values over 3.0 are sometimes associated with gastrointestinal hemorrhage, especially values over 4.0. Specimen Blood Performing Organization Address [facility] Ph one Number [facility] DEPARTMENT OF [address] [place] [address] [address] [facility] [address] [place] [address] [facility] * ECG Pre/Post Op (08/15/2019 11:41 AM CDT) Ventricular 76 [facility] rate Atrial rate 76 [facility] MN interval 160 [facility] QRSD interval 88 [facility] QT interval 424 [facility] QTC interval 477 [facility] P axis 1 33 [facility] QRS axis 1 -4 [facility] T wave axis 17 [facility] EKG impression Normal sinus rhythm-Minimal [facility] voltage criteria for LVH, may be normal variant-Possible Anterior infarct , age undetermined-Abnormal ECG-No previous ECGs available- Specimen Narrative Performed At This result has an attachment that is n ot available. Performing Organization Address City/State/Zipcode Ph one Number [facility] [address] [place] [address] * CT Renal Stone Protocol (08/03/2019 10:11 AM CDT) Specimen Narrative Performed At EXAMINATION: CT RENAL STONE PROTOCOL [facility] CLINICAL HISTORY: N20.1 Calculus of u reter, Urinary tract stone known no complications or risk factors TECHNIQUE: Multiple axial images of the abdomen and pelvis were obtained without intravenous administration of iodinated contrast. Sagittal and coronal computerized reformatted images were al so obtained. The lack of intravenous contrast reduces the sensitivity of detecting solid organ di sease. CT imaging was performed with iterative reconstruction techniques and/or automated exposure control to reduce ra diation dose. COMPARISON: CT abdomen and pelvis 06/02 FINDINGS: 1.There is a 6 mm stone in the right di stal ureter just proximal to the ureterovesical junction, which does not cause hydronephrosis. There is no left-sided urinary calculus is. 2.A left upper renal pole cortical 13 m m round lesion, with a tiny focal calcification, is intrinsically hyperde nse, indeterminate by imaging, although given that there was a cyst in this loc ation measuring 7 mm in 2010, this most likely is a hyperdense cyst. CT urogram can be obtained for de finitive characterization, but surveillance imaging may be sufficient. 3.There are multiple gallstones but no signs of cholecystitis. 4.The unenhanced liver, spleen, pancrea s, and adrenals are normal. 5.There is a large hiatal hernia. There is no bowel obstruction or inflammation. Mild sigmoid diverticulosis is present. The appendix is not definitely seen. 6.No ascites or lymphadenopathy is seen . 7.There is severe right hip arthritis s ituation which has substantially progressed since 2010. There is moderat e stable left hip arthritis. Degenerative disc disease is present, and there is a chronic L1 wedge deformity. IMPRESSION: Right distal ureteral 6 mm nonobstructi ng stone. [id number] Procedure Note Interface, Radiology Results Incoming - 08/03/2019 10:49 AM CDT EXAMINATION: CT RENAL STONE PROTOCOL CLINICAL HISTORY: N20.1 Calculus of ureter, Urinary tract stone known no complications or risk factors TECHNIQUE: Multiple axial images of the abdomen and pelvis were obtained without intravenous administration of iodinated contrast. Sagittal and coronal computerized reformatted images were also obtained. The lack of intravenous contrast reduces the sensitivity of detecting solid organ disease. CT imaging was performed with iterative reconstruction techniques and/or automated exposure control to reduce radiation dose. COMPARISON: CT abdomen and pelvis 06/30/2011 FINDINGS: 1.There is a 6 mm stone in the right dis margarita ureter just proximal to the ureterovesical junction, which does not cause hydronephrosis. There is no left- sided urinary calculus is. 2.A left upper renal pole cortical 13 mm round lesion, with a tiny focal calcification, is intrinsically hyperdense, indeterminate by imaging, although given that there was a cyst in this location measuring 7 mm in 2010, this most likely is a hyperdense cyst. CT urogram can be obtained for definitive characterization, but surveillance imaging may be sufficient. 3.There are multiple gallstones but no s igns of cholecystitis. 4.The unenhanced liver, spleen, pancreas , and adrenals are normal. 5.There is a large hiatal hernia. There is no bowel obstruction or inflammation. Mild sigmoid diverticulosis is present. The appendix is not definitely seen. 6.No ascites or lymphadenopathy is seen. 7.There is severe right hip arthritis si tuation which has substantially progressed since 2010. There is moderate stable left hip arthritis. Degenerative disc disease is present, and there is a chronic L1 wedge deformity. IMPRESSION: Right distal ureteral 6 mm nonobstructing stone. [id number] Performing Organization Address City/State/Zipcode Ph one Number [facility] [address] [place] [address] * XR Hip 2-3 View Right (05/16/2019 9:35 AM CDT) Specimen Narrative Performed At [facility] AP pelvis with lateral of the right hip : There is very definitely joint space narrowing consistent with arthrop athy. There is seems to be a little subchondral bony lucency acetabu lar region. No flattening or distortion Performing Organization Address 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 T here is a little resorption under the anterior flange of the femur but I doubt this is mechanically loose and could be residual to some deficienc ies at the time of the index procedure Performing Organization Address [facility] [address] [place] [address] * XR Leg Length Evaluation (05/16/2019 8:57 AM CDT) Specimen Narrative Performed At [facility] Full-length standing x-rays of the knee s bilaterally: Revision total knee arthroplasty is well aligned normal mec hanical axis. 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 and a varus malalignment with the mechanical axis clearly through the medial compartment of the knee Performing Organization Address City/[facility] [address] [place] [address] after 03/31/2019 Insurance Type Payer Benefit Subscriber ID Effective Phone Address Plan / Dates Group Medicare MEDICARE MEDICARE xxxxxxxxxxx [id number] MARTINEZ, PART A AND resent [place] Advance Directives For more information, please contact: [phone] Patient [facility] Explanation Type Date Recorded Advance Directives, 09/10/2019 2:25 PM Living Will and 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
--- OUTSIDE RECORDS SUMMARY | 2020-03-31 13:23 | XMS REPORT ---
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
--- OUTSIDE RECORDS SUMMARY | 2020-03-31 13:23 | XMS REPORT ---
Author Author Carey Stockton Organization eClinicalWorks Address Unknown Phone Unavailable Care Team Providers Care Licensed Marine Engineer Name Role Phone Sumi Stockton CP Unavailable Allergies, Adverse Reactions, Alerts Substance Reaction Event Type N.K.D.A. Info Not Available Non Drug Allergy Problems Problem Type Condition Code Onset Dates Condition Statu s Assessment Counseling NOS Z71.9 Active Assessment Osteoporosis, senile M81.0 Active Assessment History of hiatal hernia Z87.19 Act radha Assessment CKD (chronic kidney disease) stage 3, GFR 30-59 ml/min N18.3 Active Problem Sjogren's syndrome with keratoconjunctivitis sicca M35 .01 Active Problem Osteoporosis, senile M81.0 Active Problem CKD (chronic kidney disease) stage 3, GFR 30-59 ml/min N18.3 Active Assessment Right hip pain M25.551 Active Assessment Right medial knee pain M25.561 Activ e Assessment Sjogren's syndrome with keratoconjunctivitis sicca M35 .01 Active Medications Medication Code System Code Instructions Start Date End Date Status Dosage Aspirin [facility] 64424399434 81 MG Orally Once a day Acti ve 1 tablet Claritin NDC 0 Oral Active 1 tab Flaxseed Oil [facility] 25974-[address]61 - Active as dire cted Multivitamin [facility] 51550-[address] - Orally Active as di rected Hydroxychloroquine Sulfate [facility] 25702047539 200 MG Orally Once a day April 25, 2019 Active 1.5 tabs Meloxicam ND 38439459065 7.5 MG Orally Once a day A ctive 1 tablet Amlodipine Besylate ND 85950876460 5 MG Orally Once a day Active 1 tablet Theratears [facility] 80339064033 1 % Ophthalmic Active a s directed Tart Obando Advanced ND 11565492814 - Orally Activ e as directed Apple Cider Vinegar ND 18624745348 500 MG Orally A ctive as directed Osteo Bi-Flex Adv Double St [facility] 92468654867 - Orally Active as directed Letrozole ND 21152584885 2.5 MG Orally Once a day A ctive 1 tablet Meloxicam [facility] 33348659277 7.5 MG Orally Once a day Jul 24, 2019 Active 1 tab(s) with food as needed Cevimeline HCl [facility] 12992598339 30 MG Orally Three times a day Ju 2018 Active 1 capsule Simvastatin [facility] 48611981769 40 MG Orally Once a day Active 1 tablet in the evening Caltrate NDC 0 Oral Active 1 tab Vital Signs Date/Time: April 25, 2019 Height 65 in Blood Pressure Diastolic 81 mm Hg Blood Pressure Systolic 146 mm Hg Weight 165 lbs Results No Known Results Summary Purpose eClinicalWorks Submission
--- OUTSIDE RECORDS SUMMARY | 2020-03-31 13:23 | XMS REPORT ---
Author Author Carey Stockton Organization eClinicalWorks Address Unknown Phone Unavailable Care Team Providers Care Music Box Mechanic Name Role Phone Sumi Stockton CP Unavailable [...] Instructions Start Date End Date Status Dosage Tart Obando Advanced [facility] 62794998865 - Orally Activ e as directed Aspirin [facility] 84103096397 81 MG Orally Once a day Acti ve 1 tablet Apple Cider Vinegar [facility] 40721564601 500 MG Orally A ctive as directed Flaxseed Oil [facility] [address]26-49[address] - Active as dire cted Cevimeline HCl [facility] 35231258238 30 MG Orally Three times a day Inactive 1 capsule Amlodipine Besylate ND 53919131175 5 MG Orally Once a day Active 1 tablet Simvastatin ND 51597811474 40 MG Orally Once a day Active 1 tablet in the evening Osteo Bi-Flex Adv Double St [facility] 40599296671 - Orally Active as directed Caltrate NDC 0 Oral Active 1 tab Multivitamin [facility] 06687-98679 - Orally Active as di rected Letrozole [facility] 67077341640 2.5 MG Orally Once a day A ctive 1 tablet Meloxicam NDC 79368745127 7.5 MG Orally Once a day Nov 29 020 Active 1 tab(s) with food as needed Claritin NDC 0 Oral Active 1 tab Hydroxychloroquine Sulfate [facility] 63333269101 200 MG Orally Once a day Nov 29, 2019 Active 1.5 tabs PredniSONE ND 85816796305 5 mg Orally Once a day Aug 01, 2019 Active 1 tab(s) with food Theratears [facility] 07038923740 1 % Ophthalmic Active a s directed Vital Signs Date/Time: Aug 01, 2019 Height 65 in Blood Pressure Diastolic 69 mm Hg Blood Pressure Systolic 115 mm Hg Weight 156 lbs Results Name Result Date Reference Range Unit Abnormali ty Flag CBC W/DIFF, PLATELET CT. ----MONOS 8.7 [id number] 3.0-11.9 % ----LYMPHS 44.2 69316549 13.7-50.9 % ----HGB 12.2 75332369 11.0-15.5 gm/dL ----HCT 37.0 37844397 31.5-44.8 % ----MCV 93.7 04710849 78.0-98.0 fL ----MPV 10.0 23834120 8.6-12.1 fL ----MCH 30.9 25527839 25.2-32.6 pg ----PLATELET COUNT 390 56741366 140-425 x10(3)/uL ----MCHC 33.0 15358497 31.0-34.7 gm/dL ----IMMATURE GRANULOCYTES 0.3 48666873 0.0-1.0 % ----RDW 12.1 63386111 12.0-15.5 % ----BASOS 0.5 32132241 0.0-1.0 % ----WBC 7.67 17681260 4.00-10.10 x10(3)/uL ----POLYS 43.7 15569570 37.1-78.1 % ----RBC 3.95 34875707 3.58-5.19 x10(6)/uL ----EOS 2.6 87921471 0.0-5.0 % COMPREHENSIVE METABOLIC ----Alk Phos 69 43882661 40-156 U/L ----Bilirubin, Total <0.2 20190801 <1.2 mg/dL ----ALT 9 20190801 <33 U/L ----AST 19 20190801 <32 U/L ----BUN 20 20190801 8-23 mg/dL ----CO2 24 20190801 22-29 mmol/L ----Glucose 80 20190801 70-99 mg/dL ----Chloride 102 20190801 96-108 mmol/L ----Potassium 4.1 20190801 3.5-5.5 mmol/L ----Sodium 144 20190801 135-147 mmol/L ----e-GFR 49 20190801 >or=60 mL/min L ----Creatinine 1.06 20190801 0.49-1.02 mg/dL H ----Calcium 11.7 20190801 8.6-10.4 mg/dL H ----e-GFR, 57 20190801 >or=60 mL/min L ----Total Protein 8.1 20190801 5.9-8.4 g/dL ----Albumin 4.6 20190801 3.5-5.2 g/dL ----Globulin 3.5 20190801 1.7-3.7 g/dL ----A/G Ratio 1.3 20190801 1.1-2.9 Ratio ESR (SED-RATE) ----ESR (SED-RATE) 32 20190801 <31 mm/hr H Summary Purpose eClinicalWorks Submission
--- OUTSIDE RECORDS SUMMARY | 2020-03-31 13:23 | XMS REPORT | Continuity of Care Document ---
Author Author Ailyn Thao [employer] Address Unknown Phone Unavailable Care Team Providers Care Sales And Marketing Professional Name Role Phone [employer] Unavailable Un available Problems Problem Status Onset Date Classification Date Reported Comments Source Sjogren's syndrome with keratoconjunctivitis sicca Active Problem 12/11/2019 Sumi Najam Osteoporosis, senile Active Diagnosis 12/11/2019 Sumi Najam CKD (chronic kidney disease) stage 3, GFR 30-59 ml/min Active Diagnosis 12/11/2019 Sumi Najam Stiffness of right wrist joint Active Diagnosis 0 06/26/2019 Sumi Najam Pain in right wrist Active Diagnosis 06/26/2019 Sumi Najam Right hip pain Active Diagnosis 12/11/2019 Sumi Najam History of hiatal hernia Active Diagnosis 12/11/2019 Sumi Najam Counseling NOS Active Diagnosis 12/11/2019 Sumi Najam Right medial knee pain Active Diagnosis 12/11/2019 Sumi Najam Stiffness of left wrist joint Active Diagnosis 0 06/26/2019 Sumi Najam Swelling of joint, wrist, left Active Diagnosis 0 06/26/2019 Sumi Najam Pain in left wrist Active Diagnosis 06/26/2019 Sumi Najam Medications Medication Details Route Status Patient Instructions Ordering Provider Order Date Source PredniSONE 1 tab(s) with food Orally Active 5 mg Orally Once a day Najam 03/04/2020 Sumi Najam Meloxicam 1 tab(s) with food a s needed Orally Active 7.5 MG Orally Once a day Najam 11/29/2019 Sumi Najam Hydroxychloroquine Sulfate 1.5 tabs Orally Active 200 MG Orally Once a day Najam 11/29/2019 Sumi Najam PredniSONE 1 tab(s) with food Orally Active 5 mg Orally Once a day Naja 08/01/2019 Sumi Najam Meloxicam 1 tab(s) with food a s needed Orally Active 7.5 MG Orally Once a day Naja 07/24/2019 Sumi Naclairem Hydroxychloroquine Sulfate 1.5 tabs Orally Active 200 MG Orally Once a day Najam 04/25/2019 Sumi Najam Cevimeline HCl 1 capsule Orally Active 30 MG Orally Three time s a day Najam 04/25/2019 Sumi Nabeto Meloxicam 1 tab(s) with food a s needed Orally Active 15 MG Orally Once a day Najam 04/10/2019 Sumi Naclairem Aspirin 1 tablet Orally Active 81 MG Orally Once a day Najam Sabee n Nabeto Letrozole 1 tablet Orally Active 2.5 MG Orally Once a da y Najam Sabee n Naclairem Osteo Bi-Flex Adv Double St as directed Orally Active - Orally Najam Sumi Naclairem Simvastatin 1 tablet in the ev ening Orally Active 40 MG Orally Once a day Nabeto Jonas Nabeto Tart Obando Advanced as direct ed Orally Active - Orally Najam Sabee n Najam Theratears as directed Ophthalmic Active 1 % Ophthalmic Najam Sumi Naclairem Multivitamin as directed Orally Active - Orally Najam Sabee n Naclairem Apple Cider Vinegar as directed Orally Active 500 MG Orally Najam Sabee n Najam Flaxseed Oil as directed NA Active - Najam Sumi Najam Amlodipine Besylate 1 tablet Orally Active 5 MG Orally Once a day Najam Sumi Nabeto Meloxicam 1 tab(s) with food a s needed Orally Active 7.5 MG Orally Once a day Najam Sumi Najam Claritin 1 tab Oral Active Oral Najam Sumi Najam Caltrate 1 tab Oral Active Oral Najam Sumi Najam Cevimeline HCl 1 capsule Orally Active 30 MG Orally Three time s a day Najam Sumi Naclairem Hydroxychloroquine Sulfate 1.5 tabs Orally Active 200 MG Orally Once a day Najam Sumi Najam Allergies, Adverse Reactions, Alerts Substance Category Reaction Severity Reaction type Status Date Reported Comments Source N.K.D.A. Adverse Reaction Info Not Available Adverse Reaction 12/05/2019 Sumi Nabeto Immunizations No Data Provided for This Section Results No Data Provided for This Section Pathology Reports No Data Provided for This Section Diagnostic Reports No Data Provided for This Section Consultation Notes No Data Provided for This Section Discharge Summaries No Data Provided for This Section History and Physicals No Data Provided for This Section Vital Signs Vital Sign Value Date Comments Source Height 65 0 12/05/2019 Sumi Najam Diastolic (mm Hg) 69 12/05/2019 Sumi Najam Systolic (mm Hg) 100 12/05/2019 Sumi Najam Weight 137 12/05/2019 Sumi Najam Height 65 1 Sumi Najam Diastolic (mm Hg) 69 08/01/2019 Sumi Najam Systolic (mm Hg) 115 08/01/2019 Sumi Najam Weight 156 08/01/2019 Sumi Najam Height 65 0 04/25/2019 Sumi Najam Diastolic (mm Hg) 81 04/25/2019 Sumi Najam Systolic (mm Hg) 146 04/25/2019 Sumi Najam Weight 165 04/25/2019 Sumi Najam Height 65 0 04/10/2019 Sumi Najam Diastolic (mm Hg) 70 04/10/2019 Sumi Najam Systolic (mm Hg) 121 04/10/2019 Sumi Najam Weight 164 04/10/2019 Sumi Najam Encounters No Data Provided for This Section Procedures No Data Provided for This Section Assessment and Plan No Data Provided for This Section Plan of Care No Data Provided for This Section Social History No Data Provided for This Section Family History No Data Provided for This Section Advance Directives No Data Provided for This Section Functional Status No Data Provided for This Section
--- OUTSIDE RECORDS SUMMARY | 2020-03-31 13:23 | XMS REPORT ---
Author Author Carey Stockton Organization eClinicalWorks Address Unknown Phone Unavailable Care Team Providers Care Formation Fracturing Operator Name Role Phone Sumi Stockton CP Unavailable [...] Instructions Start Date End Date Status Dosage Apple Cider Vinegar ND 88176061741 500 MG Orally A ctive as directed Hydroxychloroquine Sulfate ND 50980814785 200 MG Orally Once a day Active 1.5 tabs Simvastatin ND 48939856371 40 MG Orally Once a day Active 1 tablet in the evening Claritin NDC 0 Oral Active 1 tab Osteo Bi-Flex Adv Double St ND 13625302192 - Orally Active as directed Caltrate NDC 0 Oral Active [place] [address] - Orally Active as di rected PredniSONE ND 99377288397 5 mg Orally Once a day March 04 Active 1 tab(s) with food Aspirin ND 61352636613 81 MG Orally Once a day Acti ve 1 tablet Letrozole ND 30383215095 2.5 MG Orally Once a day A ctive 1 tablet Amlodipine Besylate ND 82248604268 5 MG Orally Once a day Active 1 tablet Flaxseed Oil [facility] [address] - Active as dire cted Theratears [facility] 01202157527 1 % Ophthalmic Active a s directed Tart Obando Advanced [facility] 68831188823 - Orally Activ e as directed Meloxicam [facility] 05491203177 7.5 MG Orally Once a day A ctive 1 tab(s) with food as needed Vital Signs Date/Time: Dec 05, 2019 Height 65 in Blood Pressure Diastolic 69 mm Hg Blood Pressure Systolic 100 mm Hg Weight 137 lbs Results Name Result Date Reference Range Unit Abnormali ty Flag CBC W/DIFF, PLATELET CT. ----MONOS 8.6 67743415 3.0-11.9 % ----LYMPHS 33.3 46041564 13.7-50.9 % ----HGB 13.0 90142398 11.0-15.5 g/dL ----HCT 39.5 32570198 31.5-44.8 % ----MCV 95.6 67263206 78.0-98.0 fL ----MPV 10.3 07991894 8.6-12.1 fL ----MCH 31.5 84453533 25.2-32.6 pg ----PLATELET COUNT 407 64091069 140-425 x10(3)/uL ----MCHC 32.9 41748884 31.0-34.7 g/dL ----IMMATURE GRANULOCYTES 0.2 90626784 0.0-1.0 % ----RDW 12.2 20409964 12.0-15.5 % ----BASOS 0.8 15118639 0.0-1.0 % ----WBC 6.39 40418096 4.00-10.10 x10(3)/uL ----POLYS 54.4 49116568 37.1-78.1 % ----RBC 4.13 52516983 3.58-5.19 x10(6)/uL ----EOS 2.7 11980930 0.0-5.0 % ESR (SED-RATE) ----ESR (SED-RATE) 24 44219713 <31 mm/h COMPREHENSIVE METABOLIC ----Chloride 104 41302312 96-108 mmol/L ----Potassium 3.7 97099798 3.5-5.5 mmol/L ----BUN 15 20191205 8-23 mg/dL ----CO2 28 20191205 22-29 mmol/L ----e-GFR 63 20191205 >or=60 mL/min ----e-GFR, 73 20191205 >or=60 mL/min ----Creatinine 0.86 20191205 0.49-1.02 mg/dL ----Alk Phos 61 20191205 40-156 U/L ----A/G Ratio 1.2 00692601 1.1-2.9 Ratio ----AST 24 20191205 <32 U/L ----Sodium 143 20191205 135-147 mmol/L ----Calcium 11.1 21611765 8.6-10.4 mg/dL H ----Albumin 4.0 72735603 3.5-5.2 g/dL ----Bilirubin, Total 0.3 97058644 <1.2 mg/dL ----Globulin 3.4 12740934 1.7-3.7 g/dL ----Total Protein 7.4 99206703 5.9-8.4 g/dL ----ALT 13 72978023 <33 U/L ----Glucose 92 23061062 70-99 mg/dL Summary Purpose eClinicalWorks Submission
--- OUTSIDE RECORDS SUMMARY | 2020-03-31 13:23 | XMS REPORT ---
Author Author Carey Stockton Organization eClinicalWorks Address Unknown Phone Unavailable Care Team Providers Care Margin Analyst Name Role Phone Sumi Stockton CP Unavailable Allergies No Known Allergies Problems Problem Type Condition Code Onset Dates Condition Statu s Problem Sjogren's syndrome with keratoconjunctivitis sicca M35 .01 Active Problem Osteoporosis, senile M81.0 Active Problem CKD (chronic kidney disease) stage 3, GFR 30-59 ml/min N18.3 Active Medications No Known Medications Results No Known Results Summary Purpose eClinicalWorks Submission
--- OUTSIDE RECORDS SUMMARY | 2020-03-31 13:23 | XMS REPORT | Clinical Summary ---
Author Author [facility] Center[facility] Organization [facility] Address Unknown Phone Unavailable Care Team Providers Care Heel Packer Name Role Phone PCP Unavailable Allergies No Known Allergies Medications No known medications Active Problems Not on file Social History Date Tobacco Use Types Packs/Day Years Used Never Assessed Smokeless Tobacco: Never Used Sex Assigned at Date Recorded Not on file Industry Job Start Date Occupation Not on file Not on file Not on file Travel End Travel History Travel Start No recent travel history available. Last Filed Vital Signs Not on file Plan of Treatment Health Maintenance Due Date Last Done Comments PNEUMOCOCCAL 65+ 2003 LOW/MEDIUM RISK (1 of 2 - PCV13) INFLUENZA VACCINE (Season 07/01/2020 Ended) Results Not on fileafter 03/31/2019 Insurance Payer Benefit Subscriber ID Type Phone Address Plan / Group MEDICARE MEDICARE A xxxxxxxxxx Medicare B
--- OUTSIDE RECORDS SUMMARY | 2020-03-31 13:23 | XMS REPORT ---
Author Author Carey Stockton Organization eClinicalWorks Address Unknown Phone Unavailable Care Team Providers Care Program Mgr Name Role Phone Sumi Stockton CP Unavailable Allergies, Adverse Reactions, Alerts Substance Reaction Event Type N.K.D.A. Info Not Available Non Drug Allergy Problems Problem Type Condition Code Onset Dates Condition Statu s Assessment Right hip pain M25.551 Active Problem Osteoporosis, senile M81.0 Active Assessment History of hiatal hernia Z87.19 Act radha Assessment Counseling NOS Z71.9 Active Assessment Right medial knee pain M25.561 Activ e Assessment Osteoporosis, senile M81.0 Active Medications Medication Code System Code Instructions Start Date End Date Status Dosage Meloxicam [facility] 31394535970 15 MG Orally Once a day April 10, 2019 Active 1 tab(s) with food as needed Aspirin ND 10485807218 81 MG Orally Once a day Acti ve 1 tablet Letrozole ND 59221433599 2.5 MG Orally Once a day A ctive 1 tablet Osteo Bi-Flex Adv Double St [facility] 99897886859 - Orally Active as directed Simvastatin ND 33423355117 40 MG Orally Once a day Active 1 tablet in the evening Tart Obando Advanced ND 58106946943 - Orally Activ e as directed Theratears [facility] 65271880527 1 % Ophthalmic Active a s directed Multivitamin [facility] [address] - Orally Active as di rected Apple Cider Vinegar ND 47467678368 500 MG Orally A ctive as directed Flaxseed Oil [facility] [address] - Active as dire cted Amlodipine Besylate ND 77101189002 5 MG Orally Once a day Active 1 tablet Meloxicam ND 87933989097 7.5 MG Orally Once a day A ctive 1 tablet Claritin NDC 0 Oral Active 1 tab Caltrate NDC 0 Oral Active 1 tab Vital Signs Date/Time: April 10, 2019 Height 65 in Blood Pressure Diastolic 70 mm Hg Blood Pressure Systolic 121 mm Hg Weight 164 lbs Results No Known Results Summary Purpose eClinicalWorks Submission
--- OUTSIDE RECORDS SUMMARY | 2020-03-31 13:23 | XMS REPORT ---
Author Author Carey Stockton Organization eClinicalWorks Address Unknown Phone Unavailable Care Team Providers Care Used Car Make Ready Worker Name Role Phone Sumi Stockton CP Unavailable Allergies No Known Allergies Problems Problem Type Condition Code Onset Dates Condition Statu s Problem Sjogren's syndrome with keratoconjunctivitis sicca M35 .01 Active Problem Osteoporosis, senile M81.0 Active Problem CKD (chronic kidney disease) stage 3, GFR 30-59 ml/min N18.3 Active Assessment Stiffness of right wrist joint M25.631 Active Assessment Pain in right wrist M25.531 Active Medications No Known Medications Results No Known Results Summary Purpose eClinicalWorks Submission
--- OUTSIDE RECORDS SUMMARY | 2020-03-31 13:24 | XMS REPORT ---
Author Author [facility] t Organization [facility] Address [address] [place] [id number] Phone Unavailable Care Team Providers Care Fire Equipment Repairer Inspector Name Role Phone Donavan BONNER PCP MARIBEL ELLSWORTH Attphys Unavailable Vasrha CARRERO, Ginny Attphys Unavailable Sandy GRAHAM, Leonidas Tiwari Attphys Anna ERAZO, Eula Attphys Unavailable Tracy GRAHAM, [facility] Rudi Attphys Lashawn Rizzo MD Attphys Peter GRAHAM, Janell Arellano Attphys Natividad GRAHAM, Juventino Attphys Gucci GRAHAM, Wali Godwin Attphys Shanda Matson Attphys Unavailable LATRICIA DELGADO Admphys Unavailable GEORGE REYES Admphys Unavailable Payers Payer Name Policy Type Policy Number Effective Date Expiration Date S haylee MEDICAREMEDICARE PART A AND Bxxxxxxxxxxx2002-PresentALEC [place] RIMedicare xxxxxxxxxxx 2003 00:00:00 Juan Alevism Medicare A & B [id number] 2003 00:00:00 [facility] Problems Condition Name Condition Details Condition Category Status Onset Date Resolution Date Last Treatment Date Treating Clinician Comments Source Dehydration Dehydration Disease Active 2019-09-10 00:00:00 Juan Almeidaist Right ureteral stone Right ureteral stone Disease Active 00:00:00 Juan Wolfe Atrophic vaginitis Atrophic vaginitis Disease Active 2019-07-31 00:00:0 0 [place] [facility] Primary osteoarthritis of right hip Primary osteoarthritis of ri ght hip Disease Active 2019-05-16 00:00:00 [place] [facility] Sjogren's syndrome with keratoconjunctivitis sicca Sjogren's syndrome with keratoconjunctivitis sicca Active Problem 12/11/2019 Sumi [place] Problem Active 2019-12-11 03:47:56 Sa scot [place] Osteoporosis, senile Oste oporosis, senile Active Diagnosis 12/11/2019 Sumicarmen Hesterm Diagnosis Active 2019-12-11 03:47:56 Sumi [place] CKD (chronic kidney disease) stage 3, GFR 30-59 ml/min CKD (chronic kidney disease) stage 3, GFR 30-59 ml/min Active Diagnosis 12/11/2019 Sumi [place] Diagnosis Active 2019-12-11 03:47:56 Sumi [place] Stiffness of right wrist joint Stiffness of right wrist joint Active Diagnosis 06/26/2019 Sumi [place] Diagnosis Active 2019-06-26 02:47:45 Sumi Najajax Pain in right wrist Pain in right wrist Active Diagnosis 06/26/2019 Sumicarmen Hesterm Diagnosis Active 2019-06-26 02:47:45 Sumi Nabeto Right hip pain Righ t hip pain Active Diagnosis 12/11/2019 Sumi [place] Diagnosis Active 2019-12-11 03:47:56 Sumi [place] History of hiatal hernia Hist ory of hiatal hernia Active Diagnosis 12/11/2019 Sumi [place] Diagnosis Active 2019-12-11 03 :47:56 Sumi Hesterm Counseling NOS Coun seling NOS Active Diagnosis 12/11/2019 Sumicarmen Hesterm Diagnosis Active 2019-12-11 03:47:56 Sumi Hesterm Right medial knee pain Righ t medial knee pain Active Diagnosis 12/11/2019 Sumi Najam Diagnosis Active 2019-12-11 03 :47:56 Sumi Najam Stiffness of left wrist joint Stiffness of left wrist joint Active Diagnosis 06/26/2019 Sumi Najam Diagnosis Active 2019-06-26 02:47:46 Sumi Naclairem Swelling of joint, wrist, left Swelling of joint, wrist, left Active Diagnosis 06/26/2019 Sumi Najam Diagnosis Active 2019-06-26 02:47:46 Sumi Najam Pain in left wrist Pain in left wrist Active Diagnosis 06/26/2019 Sumi Najam Diagnosis Active 2019-06-26 02:47:46 Sumi Najam Allergies, Adverse Reactions, Alerts Allergy Name Allergy Type Status Severity Reaction(s) Onset Date Inacti ve Date Treating Clinician Comments Source N.K.LashawnA. N.Zaki Active Info Not Available 2019-12-05 00:00:00 [facility] Social History Social Habit Start Date Stop Date Quantity Comments Source History SDOH Alcohol Std Drinks [place] [facility] History SDOH Alcohol Binge [place] [facility] Assigned [facility] Alcohol intake 2019-09-10 00:00:00 2019-09-10 00:00:00 Lifetime non-drinker (finding) [place] [facility] History SDOH Alcohol Frequency 2019-05-16 00:00:00 2019-05-16 00:00:0 0 1 [place] [facility] Smoking Status Start Date Stop Date Source Never smoker [place] [facility] Medications Ordered Medication Name Filled Medication Name Start Date Stop Da te Current Medication? Ordering Clinician Indication Dosage Frequency Signature (SIG) Comments Components Source PredniSONE 2020-03-04 00:00:00 Yes Sumi Najam 1 tab(s) with food Sumi Najam Aspirin 2019-12-11 03:47:56 Yes Sumi Najam 1 ta blet Sumi Najam Letrozole 2019-12-11 03:47:56 Yes Sumi Najam 1 tablet Sumi Najam Osteo Bi-Flex Adv Double St 2019-12-11 03:47:56 Yes Sabe en Najam as directed Sumi Najam Simvastatin 2019-12-11 03:47:56 Yes Sumi Najam 1 tablet in the evening Sumi Najam Tart Obando Advanced 2019-12-11 03:47:56 Yes Sumi Najam as directed Sumi Najam Theratears 2019-12-11 03:47:56 Yes Sumi Najam a s directed Sumi Najam Multivitamin 2019-12-11 03:47:56 Yes Sumi Najam as directed Sumi Najam Apple Cider Vinegar 2019-12-11 03:47:56 Yes Sumi Najam as directed Sumi Najam Flaxseed Oil 2019-12-11 03:47:56 Yes Sumi Najam as directed Sumi Najam Amlodipine Besylate 2019-12-11 03:47:56 Yes Sumi Najam 1 tablet Sumi Najam Meloxicam 2019-12-11 03:47:56 Yes Usmi Najam 1 tab(s) with food as needed Sumi Najam Claritin 2019-12-11 03:47:56 Yes Sumi Najam 1 t ab Sumi Najam Caltrate 2019-12-11 03:47:56 Yes Sumi Najam 1 t ab Sumi Najam Hydroxychloroquine Sulfate 2019-12-11 03:47:56 Yes Sabee n Najam 1.5 tabs Smui Najam Meloxicam 2019-11-29 00:00:00 Yes Sumi Najam 1 tab(s) with food as needed Sumi Najam Hydroxychloroquine Sulfate 2019-11-29 00:00:00 Yes Sabee n Najam 1.5 tabs Sumi Najam hydroxychloroquine (PLAQUENIL) 200 mg tablet 2019-09-12 20:07:55 Yes 200mg QD Take 200 mg by mouth daily. Juan Wolfe aspirin (ECOTRIN) 81 MG enteric coated tablet 2019-09-12 20:07:5 5 Yes 81mg QD Take 81 mg by mouth daily. Karli Wolfe loratadine (CLARITIN) 10 mg tablet 2019-09-12 20:07:55 Yes 10mg QD Take 10 mg by mouth daily. Juan Wolfe predniSONE (DELTASONE) 5 mg tablet 2019-09-12 20:07:55 Yes 5mg QD Take 5 mg by mouth daily. Juan Wofle ciprofloxacin HCl (CIPRO) 250 MG tablet 00:00:00 2019-09-15 23:59:00 No 250mg Q.5D Take 1 tablet (250 mg total) by mouth 2 (two) times a day for 3 days. Juan Wolfe UNABLE TO FIND 2019-09-11 11:27:33 2019-09-11 00:00:00 No Supplement for dry eyes Juan Wolfe acetaminophen-codeine (TYLENOL WITH CODEINE #3) 300-30 mg pe r tablet 2019-08-15 00:00:00 2019-08-25 23:59:00 No acute pain 1{tbl} Q6H Take 1 tablet by mouth every 6 (six) hours as needed for moderate pain for up to 10 days .Acute Pain. Juan Wolfe oxybutynin (DITROPAN) 5 MG tablet 2019-08-15 00:00:00 2018 23:59:00 No 5mg Q.[id number] Take 1 ta blet (5 mg total) by mouth 3 (three) times a day as needed for bladder spasms for up to 7 days. Juan Wolfe phenazopyridine (PYRIDIUM) 200 MG tablet 2019-07 00:00:00 2019-08-19 23:59:00 No 200mg Q.[id number] Ta ke 1 tablet (200 mg total) by mouth 3 (three) times a day as needed for bladder spasms (dysuria) for up to 4 days. Juan Wolfe traMADol (ULTRAM) 50 mg tablet 2019-08-14 00:00:00 2019-08-01 5 23:59:00 No acute pain 50mg Q6H Take 1 tablet (50 mg total) by mouth every 6 (six) hours as needed for moderate pain for up to 10 days .Acute Pain. Juan Wolfe Cevimeline HCl 2019-08-07 02:47:33 Yes Sumi Najam 1 capsule Sumi Najam ciprofloxacin (CIPRO) 500 MG tablet 2019-08-03 00:00:0 0 2019-08-10 23:59:00 No Urinary tract infection without hematuria, site unspec ified 500mg Q.5D Take 1 tablet (500 mg total) by mouth 2 (two) times a day for 7 days. Juan Wolfe PredniSONE 2019-08-01 00:00:00 Yes Sumi Najam 1 tab(s) with food Sumi Najam Meloxicam 2019-07-24 00:00:00 Yes Sumi Najam 1 tab(s) with food as needed Sumi Najam Hydroxychloroquine Sulfate 2019-04-25 00:00:00 Yes Sabee n Najam 1.5 tabs Sumi Najam Cevimeline HCl 2019-04-25 00:00:00 Yes Sumi Najam 1 capsule Sumi Najam meloxicam (MOBIC) 15 mg tablet 2019-04-11 00:00:00 2019-09-12 00 :00:00 No TAKE 1 TABLET BY MOUTH ONCE DAILY NEEDED WITH FOOD FOR 30 DAYS Juan Wolfe Meloxicam 2019-04-10 00:00:00 Yes Sumi Najam 1 tab(s) with food as needed Sumi Najam meloxicam (MOBIC) 7.5 mg tablet 2019-04-10 00:00:00 00:00:00 No TAKE 1 TABLET BY MOUTH ONCE DAILY NEEDED FOR PAIN Juan Wolfe letrozole (FEMARA) 2.5 mg chemo tablet 2019-03-08 00:00:00 Yes 2.5mg QD Take 2.5 mg by mouth daily. Juan purcell amLODIPine (NORVASC) 5 mg tablet 2019-03-08 00:00:00 2019-08 00:00:00 No Juan page simvastatin (ZOCOR) 40 MG tablet 2019-03-08 00:00:00 2019-08 00:00:00 No 40mg QD Take 40 mg by mouth nightly. Juan Wolfe Aspirin 325 Mg Tablet Aspirin 325 Mg Tablet 2017-12-28 00:00:00 2018-01-18 00:00:00 No [place] [facility] 325 Twice A Day [facility] Amlodipine Besylate 5 Mg Tablet Amlodipine Besylate 5 Mg Tablet Yes 5 Daily [facility] Calcium Carbonate/Vitamin D3 (Caltrate 600 W-D Tablet) 1 Each Tablet Calcium Carbonate/Vitamin D3 (Caltrate 600 W-D Tablet) 1 Each Tablet Yes 2 [facility] Cider Vinegar (Apple Cider Vinegar) 300 Mg Tablet Cide r Vinegar (Apple Cider Vinegar) 300 Mg Tablet Yes [facility] Glucosamine Hcl/Chondr Henson A Na (Osteo Bi-Flex Caplet) 1 Each Tablet Glucosamine Hcl/Chondr Henson A Na (Osteo Bi-Flex Caplet) 1 Each Tablet Yes 2 [facility] Letrozole 2.5 Mg Tablet Letrozole 2.5 Mg Tablet Yes 50 Daily [facility] Loratadine (Claritin) 5 Mg Tab.rapdis Loratadine (Claritin) 5 Mg Ta b.rapdis Yes Daily [facility] Multivitamin (Multi-Vitamin Daily) 1 Each Tablet Multi vitamin (Multi-Vitamin Daily) 1 Each Tablet Yes [facility] Simvastatin 40 Mg Tablet Simvastatin 40 Mg Tablet Yes 40 Today At 9:00PM [facility] Vit C/Obando & Celery Ex/Grp E (Tart Obando Capsule) 1 Each Capsule Vit C/Obando & Celery Ex/Grp E (Tart Obando Capsule) 1 Each Capsule Yes [facility] Aspirin 81 Mg Tab.chew, Aspirin 81 Mg Tab.chew, 2017-12-28 00:00 :00 No [facility] Vital Signs Vital Name Observation Time Observation Value Comments Source Height 2019-12-05 15:45:00 Suimcarmen rosales Diastolic (mm Hg) 2019-12-05 15:45:00 Sab carmen [place] Systolic (mm Hg) 2019-12-05 15:45:00 Sabe nataliya Hesterm Weight 2019-12-05 15:45:00 Sumicarmen rosales Systolic blood pressure 2019-09-12 15:28:11 136 mm[Hg] [place] [facility] Diastolic blood pressure 2019-09-12 15:28:11 64 mm[Hg] [place] [facility] Heart rate 2019-09-12 15:28:11 74 /min [place] [facility] Body temperature 2019-09-12 15:28:11 37.5 Sheri [place] [facility] Respiratory rate 2019-09-12 15:28:11 16 /min [place] [facility] Oxygen saturation in Arterial blood by Pulse oximetry 2018-10 15:28:11 95 /min [place] [facility] Body height 2019-09-10 18:23:00 162.6 cm [place] [facility] Body weight 2019-09-10 18:23:00 70.761 kg [place] [facility] BMI 2019-09-10 18:23:00 26.78 kg/m2 [place] [facility] Height 2019-08-01 14:45:00 Sumicarmen rosales Diastolic (mm Hg) 2019-08-01 14:45:00 Bing Hesterm Systolic (mm Hg) 2019-08-01 14:45:00 Sabe en Naclairem Weight 2019-08-01 14:45:00 Sumi N ajam Height 2019-04-25 19:15:00 Sumi N ajam Diastolic (mm Hg) 2019-04-25 19:15:00 Sab een Najam Systolic (mm Hg) 2019-04-25 19:15:00 Sabe en Najam Weight 2019-04-25 19:15:00 Sumi N ajam Height 2019-04-10 19:30:00 Sumi N ajam Diastolic (mm Hg) 2019-04-10 19:30:00 Sab een Najam Systolic (mm Hg) 2019-04-10 19:30:00 Sabe en Najam Weight 2019-04-10 19:30:00 Sumi N ajam Procedures Procedure Date / Time Performed Performing Clinician [facility] e HC ECHO 2-D F/UP LIMITED 2019-09-12 18:07:06 Latricia Delgado BASIC METABOLIC PANEL 2019-09-12 11:40:00 Nile Taylor HC COMPLETE BLD COUNT W/AUTO DIFF 2019-09-12 11:40:00 Nile Taylor ESTIMATED GFR 2019-09-12 11:40:00 Nile Taylor ARTERIAL BLOOD GAS 2019-09-12 11:32:00 Emelina Castrejon NM HEPATOBILIARY W PHARM 2019-09-12 09:35:50 Latricia Delgado US GALLBLADDER 2019-09-11 17:20:47 Rich Quiroz Meth odist US RENAL 2019-09-11 17:20:16 Harvey Rodriguez ethodist TTE COMPLETE, WO CONTRAST, W DOPPLER ([id number]) 2019-09-11 16:5 2:[address] CHEST WO CONTRAST 2019-09-11 10:02:08 Emelina Castrejon URINE CULTURE 2019-09-11 01:22:00 Latricia Delgado ethodist GRAM STAIN 2019-09-11 01:22:00 Latricia Delgado ethodist URINALYSIS SCREEN AND MICROSCOPY, WITH REFLEX TO CULTURE 201 07-11-12 01:02:00 Latricia Delgado PROTEIN, URINE, RANDOM 2019-09-11 01:02:00 Harvey Rodriguez CREATININE LEVEL, URINE, RANDOM 2019-09-11 01:02:00 Harvey Rodriguez SODIUM LEVEL, URINE, RANDOM 2019-09-11 01:02:00 Harvey Rodriguez NM LUNG VENTILATION PERFUSION 2019-09-10 19:35:31 Latricia Delgado XR CHEST 2 VW 2019-09-10 17:14:18 Latricia Delgado ethodist HC COMPLETE BLD COUNT W/AUTO DIFF 2019-09-10 15:45:00 Georgia Delgado COMPREHENSIVE METABOLIC PANEL 2019-09-10 15:45:00 Latricia Delgado B NATRIURETIC PEPTIDE 2019-09-10 15:45:00 Latricia Delgado ston Alevism D-DIMER 2019-09-10 15:45:00 Latricia Delgado ethodist TROPONIN 2019-09-10 15:45:00 Latricia Delgado M ethodist ESTIMATED GFR 2019-09-10 15:45:00 Latricia Delgado ethodist ECG 12-LEAD 2019-09-10 15:33:54 Latricia Delgado ethodist FL < 1 HOUR 2019-08-15 15:11:49 Sam Rizzo CALCULI ANALYSIS WITH PHOTO 2019-08-15 14:33:00 Rudi Molina SURGICAL PATHOLOGY REQUEST 2019-08-15 14:33:00 Rudi Molina ANESTHESIA INTUBATION 2019-08-15 14:00:49 Chase Chacko HC COMPLETE BLD COUNT W/AUTO DIFF 2019-08-15 11:49:00 Keila Rizzo BASIC METABOLIC PANEL 2019-08-15 11:49:00 Sam Rizzo PROTHROMBIN TIME WITH INR 2019-08-15 11:49:00 Sam Rizzo ESTIMATED GFR 2019-08-15 11:49:00 Sam Rizzo ECG PRE/POST OP 2019-08-15 11:41:[address] RENAL STONE PROTOCOL 2019-08-03 10:11:32 Sam Rizzo URINE CULTURE 2019-07-31 10:59:00 Sam Rizzo GRAM STAIN 2019-07-31 10:59:00 Sam Rizzo XR HIP 2-3 VIEWS RIGHT 2019-05-16 09:35:36 Tato Duckworth XR KNEE 4+ VW RIGHT 2019-05-16 08:57:52 Tato Duckworth XR LEG LENGTH EVALUATION 2019-05-16 08:57:43 Tato Duckworth Total replacement of knee joint 2017-12-27 00:00:00 EMIR ELLSWORTH [facility] X-ray of chest, two views 2017-12-26 00:00:00 INDU VELEZ [facility] Plan of Care Planned Activity Planned Date Details Comments Source Future Scheduled Test 2020-05-31 00:00:00 INFLUENZA VACCINE [code = INFLUENZA VACCINE] [facility] Future Scheduled Test 2003 00:00:00 65+ PNEUMOCOCCAL V ACCINE (1 of 2 - PCV13) [code = 65+ PNEUMOCOCCAL VACCINE (1 of 2 - PCV13)] [facility] Future Scheduled Test 1988 00:00:00 SHINGLES VACCINES (#1) [code = SHINGLES VACCINES (#1)] Juan Wolfe Encounters Start Date/Time End Date/Time Encounter Type Admission Type [facility] Facility Care Department Encounter ID Source 2020-03-31 13:23:36 Outpatient MHIEALT MHIEALT [id number] [facility] 2019-12-05 09:45:00 2019-12-05 09:45:00 Outpatient [facility] [id number] [place] 2019-09-10 00:00:00 2019-09-12 00:00:00 Inpatient LATRICIA DELGADO [facility] [id number] [facility] 2019-08-01 09:45:00 2019-08-01 09:45:00 Outpatient [facility] [id number] [facility] 2019-06-27 16:31:00 2019-06-27 16:31:00 Emergency E [id number] 2019-06-19 09:00:00 2019-06-19 09:00:00 Outpatient [facility] [id number] [facility] 2019-06-18 09:00:00 2019-06-18 09:00:00 Outpatient [facility] [id number] [facility] 2019-06-14 13:49:00 2019-06-14 13:49:00 Outpatient [facility] [id number] [facility] 2019-04-27 11:51:00 2019-04-27 11:51:00 Outpatient [facility] [id number] [facility] 2019-04-25 14:15:00 2019-04-25 14:15:00 Outpatient [facility] [id number] [facility] 2019-04-10 14:30:00 2019-04-10 14:30:00 Outpatient [facility] [id number] [facility] 2017-12-27 10:42:00 2017-12-28 16:42:00 Discharged Inpatient [facility] [id number] [facility] Results Test Description Test Time Test Comments Results Result Comments Source CHEST 2 VIEWS 2020-03-27 10:53:00 [place] [address] Patient Name: GILBERT HELTON MR #: [id number] : 1940 Age/Sex: 79/F Req #: [id number] Adm Physician: Ordered by: MARIBEL ELLSWORTH MD Report #: [id number] Location: OR Room/Bed: Procedure: [id number] DX/CHEST 2 VIEWS Exam Date: 03/27/20 Exam Time: 1010 REPORT STATUS: Signed EXAMINATION: CHEST 2 VIEWS INDICATION: Pre-operative COMPARISON: None FINDINGS: LINES/TUBES:None LUNGS:The lungs are well-inflated. No focal consolidation or pulmonary edema. PLEURA:No pleural effusion or pneumothorax. MEDIASTINUM:The cardiomediastinal silhouette appears normal in size and shape. BONES/SOFT TISSUES:No acute osseous injury. Surgical clips at the right axilla. ABDOMEN:Large hiatal hernia. No free air under the diaphragm. IMPRESSION: No focal pneumonia or pulmonary edema. Large hiatal hernia. Signed by: Blanca Haines MD on 03/27/2020 10:55 AM Dictated By: BLANCA HAINES MD 105 Transcribed By: VANESSA on 03/27/20 105 COPY TO: MARIBEL ELLSWORTH MD BONE and/or JOINT WHOLE BODY 2020-03-04 18:21:00 [place] [address] Patient Name: GILBERT HELTON MR #: [id number] : 1940 Age/Sex: 79/F Req #: [id number] Adm Physician: Ordered by: MARIBEL ELLSWORTH MD Report #: [id number] Location: NM Room/Bed: Procedure: [id number] NM/BONE and/or JOINT WHOLE BODY Exam Date: 03/04/20 Exam Time: 1110 REPORT STATUS: Signed Bone Scan, three-phase and total body delayed imaging Reason for exam: 79 F with painful right knee prosthesis. Also pain in right hip and lower leg. Patient has history of breast cancer in 2014. Radiopharmaceutical: Tc-99m MDP 26.8 mCi IV LAC Comparison: None Following intravenous administration of the radiopharmaceutical, dynamic flow and immediate blood pool images of the knees followed by delayed total body and selected spot images were obtained. Flow and blood pool images show diffusely symmetric distribution of tracer activity to the to the knees with focal, very mild increased tracer along the tibial component of the right knee prosthesis . On the delayed images, very mildly increased tracer is also seen along the tibial component of the right knee prosthesis. There is no increased tracer activity in the adjacent soft tissues. Degenerative changes are noted in the left knee. The total body images show focal, markedly increased tracer in the right acetabulum. Otherwise, distribution of tracer activity is unremarkable throughout the skeletal system. No abnormal accumulation of tracer is seen in the soft tissues or urinary tract. Impression: 1. The very mild osteo blastic process surrounding the tibial component of the right knee prosthesis is likely physiologic. With absent increased tracer activity on the flow images, and no evidence of associated hyperemia, infection is unlikely, however, specificity of the finding could but increased with a labeled white blood cell study. 2. 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 This may be related to infection, inflammation (severe degenerative disease), post-traumatic changes or less likely, solitary bone metastasis. Correlative imaging may be warranted. Also consider referred pain in the right knee related to the changes in the right hip. Signed by: Dr. Rubi Goss M.D. on 03/04/2020 6:45 PM Dictated By: RUBI GOSS MD [id number] Transcribed By: VANESSA on 03/04/201844 COPY TO: MARIBEL ELLSWORTH MD Cv echo 2d limited or follow up study 2019-09-18 18:40:48 Test Item BSA Ino (test code = 4138738362) 1.79 m2 BSA (test code = 0414460406) 1.75 m2 BSA Zhanna (test code = 3878354244) 1.78 m2 BMI (test code = 7885091417) 24.96 kg/m2 Pt Size (test code = 0590168075) 165.10 Pt Wt (test code = 4169778767) 68.04 MAX Pred HR (test code = 5855824503) 138.59 85 of MPHR (test code = 4375168253) 117.80 Calc MPHR (test code = 4141158278) 138.59 bpm Pred Exer Dur R1 (test code = 1951610785) 5.59 Pred METS R1 (test code = 7072378586) 4.12 [facility] [id number] 14:44:08* Test Item Value Reference Range Interpretation Comments Gram stain result (test code = 664-3) No WBC's or organisms seen. Specimen InformationSpecimen Source: UrineSpecimen Site: Clean catch [facility] metabolic [id number] 12:19:06* Test Item Value Reference Range Interpretation Comments Sodium (test code = 2951-2) 142 135- 150 mEq/L Potassium (test code = 2823-3) 3.6 3.5- 5.0 mEq/L Chloride (test code = 2075-0) 107 98- 112 mEq/L CO2 (test code = 2027-9) 23 mmol/L 24-31 L Anion gap (test code = 05433-3) 12@ANIO 7- 15 mEq/L BUN (test code = 3094-0) 11 mg/dL 7-18 Creatinine (test code = 2160-0) 0.60 mg/dL 0.5-0.9 Glucose (test code = 2345-7) 104 mg/dL 65-100 H Calcium (test code = 79640-5) 9.6 mg/dL 8.8-10.2 Lab Interpretation (test code = 11398-9) Abnormal [place] MethodistEstimated [id number] 12:19:05* Test Item Value Reference Range Interpretation Comments Estimated GFR (test code = 5488) 85 mL/min/1.73 m2 Catergory Units InterpretationG1 >=90 Normal or highG2 60-89 Mildly ojmdwqelzB5b 45-59 Mildly to moderately btxbwrfhpF1s 30-44 Moderately to severely decreasedG4 15-29 Severely decreasedG5 <15 Kidney failureThe eGFR was calculated using the Chronic Kidney Disease Epidemiology Collaboration (CKD-EPI) equation. Interpretation is based on recommendations of the National Kidney Foundation-Kidney Disease Outcomes Quality Initiative (NKF-KDOQI) published in 2014. [place] with platelet and [id number] 11:59:48* Test Item Value Reference Range Interpretation Comments WBC (test code = 13279-2) 4.6 4.2- 11.0 k/uL RBC (test code = 78921-3) 3.69 m/uL 4.04-5.86 L HGB (test code = 718-7) 11.3 g/dL 11.5-15.3 L HCT (test code = 4544-3) 35.6 % 34-45 MCV (test code = 787-2) 96.5 fL 80-98 MCH (test code = 785-6) 30.6 pg 27-34 MCHC (test code = 786-4) 31.7 g/dL 31.5-36.5 RDW - SD (test code = 39474-4) 46.1 fL 37-51 MPV (test code = 86490-1) 9.6 fL 7.4-10.4 Platelet count (test code = 52194-3) 278 150- 400 k/uL Nucleated RBC (test code = 42243-9) 0.00 /100 WBC Neutrophils (test code = 20516-6) 56.1 % 36-66 Lymphocytes (test code = 74350-7) 32.8 % 24-44 Monocytes (test code = 80870-3) 8.7 % 0-6 H Eosinophils (test code = 99909-4) 0.0 % 0-6 Basophils (test code = 18916-0) 1.1 % 0-1.2 Immature granulocytes (test code = 53923-3) 1.3 % 0-1 H Lab Interpretation (test code = 76089-8) Abnormal [place] MethodistArterial blood [id number] 11:41:23* Test Item Value Reference Range Interpretation Comments pH, arterial (test code = 2744-1) 7.480 7.350- 7.450 units H pCO2, arterial (test code = 2018-) 36.2 35.0- 45.0 mmHg pO2, arterial (test code = 2703-7) 90.6 80.0- 90.0 mmHg H O2 saturation, arterial (test code = 65687-3) 98.4 % 95-100 Base excess, arterial (test code = 1925-7) 3.4 mEq/L Bicarbonate (test code = 349) 26.9 21.0- 28.0 mEq/L O2 content (test code = 1828) 15.2 VOL% FiO2, inspired O2% (test code = 1389) 21.0 % Carboxyhemoglobin (test code = 69958-9) 0.5 % 0-1.4 Reference Ranges: CarboxyhemoglobinNon smoker: 0.0 - 2.0%Smoker: 2.1 - 5.0%Heavy smoker: 5.1 - 9% Methemoglobin (test code = 2613-8) 0.6 % 0-1 Hemoglobin, blood gas (test code = 18772-3) 11.0 g/dL 12-16 L pO2, A-a (test code = 1989) 19.7 mmHg Lab Interpretation (test code = 82642-8) Abnormal Juan Willis Hepatobiliary W Pharm (HIDA Scan w Pharm)2019-09-12 10:35:48 Hm Interface, Radiology Results 09/12/2019 10:38 AM CSTPROCEDURE: AR HEPATOBILIARY W PHARM (HIDA SCAN W PHARM)INDICATION: Cholelithiasis.TECHNIQUE: The patient was injected with 5 mCi of Tc-99m mebrofenin (Choletec), IV, followe d by dynamic imaging of the abdomen in the anterior projection for 1 hour. The p atient was then given a 60 minute intravenous infusion of CCK 1.5 ug while dynam ic imaging of the abdomen was performed; these images were used to calculate the gallbladder ejection fraction.FINDINGS: Hepatocellular uptake is normal, with n ormal excretion into the biliary tree. Tracer is seen within the gallbladder an d small bowel by one hour. After CCK infusion, there is normal contraction of t he gallbladder. Gallbladder ejection fraction is 40%, (normal is greater than 30 %). IMPRESSION:1. No evidence for acute cholecystitis, cystic duct obstruction, or common bile duct obstruction. 2. Normal gallbladder ejection fraction. [facility]-2U [id number] and approved by medical resident/fellow: Xochitl Begum, Britton Mathew, personally reviewed the images and resident's/fellow's findings and agree with the final report.[facility] MethodistUS Syxyj8337-74-49 20:31:37Hm Interface, Radiology Results Incoming - 09/11/2019 8:34 PM CSTEXAMINATION: US RENALCLINICAL HISTORY: Renal failure acute (kidney injury)COMPARISON: None .FINDINGS: The kidneys are normal in size and echogenicity. There is no evidence of any solid renal mass, calculi, or hydronephrosis.The right kidney measures 10.56 cm X 5.59 cm X 4.57 cmThe left kidney measures 10.84 cm X 5.67 cm X 5.35 cm. There is a 1.4 cm cyst seen within the left kidney.The bladder is deco mpressed at the time of examination.IMPRESSION:1.The kidneys of normal size and echotexture.2. There is no hydronephrosis nor any solid renal mass.3. There is a simple 1.4 cm cyst seen within the left kidney.4. The bladder is decompressed at the time of examination.[facility]J-[id number] MethodistEchocardiogram complete w contrast and 3D if xzranj7954-41-55 20:16:52* Test Item Value Reference Range Interpretation Comments Ao Root Diameter (test code = 0980790442) 3.57 cm AoV Area, Vmax (test code = 8779257624) 2.92 cm2 AoV Area, VTI (test code = 9522188831) 3.11 cm2 AoV Mean PG (test code = 4878244439) 3.18 mmHg AoV Peak PG (test code = 8443736972) 6.29 mmHg AoV Vmax (test code = 9993810934) 1.26 m/s AoV VTI (test code = 7649117182) 0.27 m BSA [place] (test code = 8641757650) 1.79 m2 BSA (test code = 6299863788) 1.75 m2 IVS,d (test code = 6677360360) 1.35 cm IVS/LVPW,2D (test code = 8072785524) 1.04 Left Atrium Dimension Anterior (test code = 4656209416) 3.40 cm LV,d (test code = 2587214872) 4.05 cm LV EF,2D (test code = 5624567926) 57.91 % LV,s (test code = 1214270702) 3.04 cm LVOT area (test code = 7943251341) 3.46 cm2 LVOT Diam,S (test code = 1378239103) 2.10 cm LVOT Vmax (test code = 5624442133) 1.08 m/s LVOT VTI (test code = 9664967655) 0.24 m LVPWD,d (test code = 0464745289) 1.29 cm PV Pk Grad (test code = 7330582261) 4.47 mmHg PV VMAX (test code = 8907789855) 1.06 m/s TR Vpeak (test code = 6567205953) 2.29 mm/s MV E A ratio (test code = 6942584243) 0.62 TR pk grad (test code = 5659982988) 19.70 mmHg AoV area i VTI BSA [place] (test code = 2213819057) 1.78 cm2/m2 BMI (test code = 5055205336) 24.96 kg/m2 E wave decelartion time (test code = 5029890569) 131.48 msec MV Peak A Boris (test code = 3796124612) 1.29 m/s MV valve area p 1/2 method (test code = 6922038861) 3.81 cm2 MV Peak E Boris (test code = 9990440641) 0.73 m/s MV stenosis pressure 1/2 time (test code = 5513979155) 57.74 ms AV LVOT peak gradient (test code = 7363811992) 4.47 mmHg Ascending aorta (test code = 6964410920) 3.74 cm Ao Root Diameter (test code = 8996356100) 3.57 cm LV SYS VOL (test code = 3652124891) 36.08 ml LV [place] VOL (test code = 0816722230) 72.24 ml LV SI Teich 2D (test code = 6980995851) 20.65 ml/m2 LV SV Teich 2D (test code = 7704237674) 36.15 ml LV Vol s Teich PSAX (test code = 9261070981) 36.08 ml LVOT SI (test code = 5198356897) 47.23 ml/m2 BSA [place] (test code = 7361799798) 1.78 m2 AoV Vmn (test code = 5681437017) 0.83 IVS s 2D (test code = 4129928448) 1.59 LV FS Teich 2D (test code = 9604892914) 25.06 MV AE ratio (test code = 5245397839) 1.62 LV FS Cube 2D (test code = 5705736215) 25.06 LVOT Vmn (test code = 0547061495) 0.78 Pt Size (test code = 6315200082) 165.10 Pt Wt (test code = 5808696626) 68.04 Aov area Vmn (test code = 7140066298) 3.11 cm2 LA A_P score P (test code = 4666643673) 1.67 LVOT mean grad (test code = 2438988207) 2.69 mmHg MAX Pred HR (test code = 6908531866) 138.59 85 of MPHR (test code = 5575879976) 117.80 AoV area I VMN bsa (test code = 8836259302) 1.78 cm2/m2 Calc MPHR (test code = 1332454821) 138.59 bpm IVS pct thck PLAX (test code = 0912904952) 18.07 % LV SI Cube 2D (test code = 6162555615) 22.03 ml/m2 LV SV Cube 2D (test code = 9559028819) 38.57 ml LV vol d cube 2D (test code = 7317953612) 66.60 ml LV vol s cube 2D (test code = 4201449417) 28.03 ml LVPW pct thck PLAX (test code = 7541937403) 24.34 % LVPW s PLAX (test code = 4577861857) 1.61 cm MV Decel slope (test code = 8044814722) 5.52 m/s2 Pred Exer Dur R1 (test code = 9359445483) 5.59 Pred METS R1 (test code = 7792134714) 4.12 LA Vol MOD A4C (test code = 5222676890) 64.11 ml Velocity Ratio (V1/V2) (test code = 4689) 0.86 m/s EF (test code = 4323714730) 50.06 % E/A ratio (test code = 3184895906) 0.57 JARRED (test code = JARRED) Left ventricular systolic function is normal. There is mild left ventricular concentric hypertrophy. Left Ventricular ejection fraction is 55 - 60%. Left atrium size is mildly dilated. Spectral Doppler shows impaired relaxation pattern of left ventricular diastolic filling. Martinez EllekayleeUS Xxnrshryzho8606-41-75 17:33:26Hm Interface, Radiology Results Incoming - 09/11/2019 5:36 PM CSTExamination: US GALLBLADDERClinical history: CholelithiasisComparison: NoneIMPRESSION: Transverse and longitudinal sonographic images were obtained through the gallbladder fossa.1. Stones and sludge are present within an otherwise normal-appearing gallbladder without pericholecystic fluid or gallbladder wall thickening.2. The common duct is within normal limits at 5mm3. The portal vein is patent.Gallbladder measurement guidelines*Gallbladder distention: Greater than 9 x 4 cm (longitud inal by transverse dimension)*Wall thickening: Greater than 3 mm*Common bile sarah t dilatation: Greater than 6 mm (allowing 1 additional millimeter for each decad e of age greater than 60 years)*Common bile duct dilatation status post cholecys tectomy: Greater than 10 mm*Portal vein dilatation: Greater than 1.3 cm (measure ments are variable and dependent upon hydration status and respiration)[facility]-2UA8 371YZFHouston MethodistCT Chest Wo Qurodxis3881-98-08 10:04:03Hm Interface, Radiology Results Incoming - 09/11/2019 10:07 AM CSTEXAMINATION:CT CHEST WO CONTRASTCLINICAL HISTORY:Acute resp illness 38 years oldTECHNIQUE: Multiple axial images of the chest were obtained without intravenous contrast. The lack of intravenous contrast reduces the sensitivity of detecting solid organ disease and evaluating vasculature. Sagittal and coronal computerized reformatted images were also obtained. CT imaging was performed with iterative reconstruction techniques and/or automated exposure control to reduce radiation dose. CO MPARISON:To a chest x-ray from 09/10/2019IMPRESSION:1.Postoperative changes invo lving the right breast are present.2.Gallstones noted within the gallbladder, wi thout evidence of biliary ductal dilatation. A large hiatal hernia is present.3. No evidence of hilar or mediastinal lymphadenopathy. The partially visualized ri ght kidney demonstrates pyelectasis. Fibrotic changes presumably related to radi ation are noted in the right lung apex.4.Some minimal bronchiectasis is present in both lung bases. The lungs otherwise are clear.5.The bones are moderately ost eopenic and moderate wedge compression is noted involving a lower thoracic verte bral body.[facility]-[id number] MethodistECG 12 qktv7861-07-01 08:21:12* Test Item Value Reference Range Interpretation Comments Ventricular rate (test code = 253) 69 Atrial rate (test code = 255) 69 AL interval (test code = 266) 162 QRSD interval (test code = 260) 94 QT interval (test code = 264) 432 QTC interval (test code = 265) 462 P axis 1 (test code = 267) 33 QRS axis 1 (test code = 268) 1 T wave axis (test code = 270) 6 EKG impression (test code = 273) Sinus rhythm with pre mature atrial complexes- Voltage criteria for left ventricular hypertrophy-Inferior infarct , age undetermined-Abnormal ECG-In automated comparison with ECG of 15-AUG-2019 11:41,-premature atrial complexes are now present- Martinez MethodistCreatinine level, urine, iwuxaz7752-29-38 01:51:38* Test Item Value Reference Range Interpretation Comments Creatinine, urine, random (test code = 01239-3) 29 mg/dL Martinez MethodistProtein, urine, jyifoc4327-92-76 01:51:38* Test Item Value Reference Range Interpretation Comments Protein, urine random (test code = 2888-6) 5 mg/dL A Lab Interpretation (test code = 65698-1) Abnormal Martinez MethodistSodium level, urine, siiamc2783-53-22 01:45:34* Test Item Value Reference Range Interpretation Comments Sodium, urine, random (test code = 53213-6) 31 mEQ/L A Lab Interpretation (test code = 82409-7) Abnormal Martinez MethodistUrinalysis screen and microscopy, with reflex to culture 2019-09-11 01:27:16* Test Item Value Reference Range Interpretation Comments Specimen site (test code = 5901060) Clean catch Color, UA (test code = 5778-6) Colorless Appearance, UA (test code = 5767-9) Clear Specific gravity, UA (test code = 5811-5) 1.003 1.001-1.035 pH, UA (test code = 5803-2) 6.0 5.0-8.5 Protein, UA (test code = 30891-9) Negative Negative Glucose, UA (test code = 31718-9) 1+ Negative A Ketones, UA (test code = 2514-8) Negative Negative Bilirubin, UA (test code = 5770-3) Negative Negative Blood, UA (test code = 5794-3) Negative Negative Nitrite, UA (test code = 5802-4) Negative Negative Urobilinogen, UA (test code = 13870-1) Negative <2.0 Leukocyte esterase, UA (test code = 5799-2) Moderate Negative A Epithelial cells, UA (test code = 5787-7) Few /HPF WBC, UA (test code = 5821-4) 10 0- 5 /HPF A RBC, UA (test code = 99359-4) 1 0- 5 /HPF Bacteria, UA (test code = 40600-6) None seen None seen Yeast, UA (test code = 16335-8) None seen Yeast with pseudohyphae, UA (test code = 00871-8) None seen Lab Interpretation (test code = 16157-4) Abnormal [facility] Lung Ventilation Qinwxrwoz6063-19-48 21:52:08Hm Interface, Radiology Results - 09/10/2019 9:55 PM CSTPROCEDURE: AR LUNG VENTILATION PERFUSIONINDICATION: PE suspected.COMPARISON: CXR dated same day 1701.TECHNIQUE: Planar ventilation images were acquired after the inhalation of 15 mCi of Xe-133 gas. Planar perfusion images were acquired after the IV a dministration of 5 mCi of Tc-99m MAA.FINDINGS: Small to moderate sized, matched defects in the lung periphery. No mismatched defects. Prominent renal and vis ceral uptake.IMPRESSION:1. Low probability for PE.2. Possible right to left sh unt.[facility]-[id number] Hospital [facility] Chest 2 Jt3600-82-49 17:54:55 Interface, Radiology Results Incoming - 09/10/2019 5:57 PM CSTEXAMINATION: XR CHEST 2 VWCLINICAL HISTORY: DoeXR CHEST 2 VW images are submittedCOMPARISON: NONEFINDINGS:Surgical clips projecting over right chest port.Heart and medias tinum: Tortuous thoracic aorta. Hiatal hernia.Lungs: The lungs are well inflat ed and clear. There is no evidence of pneumonia or pulmonary edema.Pleura: Ther e is no pleural effusion or pneumothorax.Bones: Age-indeterminate L1 and L2 com pression fractures.IMPRESSION: 1. Negative for acute cardiopulmonary disease.2. Hiatal hernia.2. Age-indeterminate compression fracture of L1 and L2.[facility]-[id number] 0H94NtagmfaUvalde Memorial Hospital natriuretic lqaagtt0619-59-38 16:43:21* Test Item Value Reference Range Interpretation Comments BNP (test code = 58166-3) 59 pg/mL 0-100 [facility] HospitalEldkeqmguInshczmy7275-47-03 16:43:06* Test Item Value Reference Range Interpretation Comments Troponin (test code = 68887-9) 0.015 ng/mL 0-0.04 [place] changed methodology effective: 03/06/2019 at 10:00 amThe new method has a 99th percentile cutoff of 0.040 ng/mL [facility] metabolic hvven9765-31-43 16:36:00* Test Item Value Reference Range Interpretation Comments Sodium (test code = 2951-2) 140 135- 150 mEq/L Potassium (test code = 2823-3) 3.6 3.5- 5.0 mEq/L Chloride (test code = 2075-0) 103 98- 112 mEq/L CO2 (test code = 8-9) 24 mmol/L 24-31 Anion gap (test code = 11683-3) 13@ANIO 7- 15 mEq/L BUN (test code = 3094-0) 18 mg/dL 7-18 Creatinine (test code = 2160-0) 1.20 mg/dL 0.5-0.9 H Glucose (test code = 2345-7) 96 mg/dL 65-100 Calcium (test code = 18707-7) 10.3 mg/dL 8.8-10.2 H Protein (test code = 2885-2) 6.6 g/dL 6.3-8.3 Albumin (test code = 1751-7) 3.1 g/dL 3.5-5 L A/G ratio (test code = 1759-0) 0.9 0.7-3.8 Alkaline phosphatase (test code = 6768-6) 53 U/L 0-104 AST (test code = 1920-8) 27 U/L 10-35 ALT (test code = 1742-6) 13 U/L 5-50 Total bilirubin (test code = 1974-2) 0.3 mg/dL 0.2-1.2 Lab Interpretation (test code = 51405-2) Abnormal [place] XdcnjasmnX-zohav8294-32-11 16:10:30* Test Item Value Reference Range Interpretation Comments D-dimer (test code = 38703-3) 3.22 0.00- 0.40 ug/mL FEU H Units are ug/ml Fibrinogen Equivalent Unit.When combined with low clinical probability, D-dimer results of less than 0.5 ug/ml FEU have a good negative predictive value in excluding PE or DVT. For D-dimer results greater than 0.5 ug/ml FEU further testing is indicated if PE or DVT is suspected clinically.Elevated D-dimer results have been reported in DVT, PE, and DIC cases and may indicate the pre sence of a clot. D-dimer results may be elevated due to old age, , inflammatory diseases, trauma, post-operative states, sepsis, and malignancies. Lab Interpretation (test code = 59615-6) Abnormal [place] MethodistCalculi analysis with tarbq7866-95-27 15:59:30* Test Item Value Reference Range Interpretation Comments Calculi mass (test code = 3154-2) 24 mg Calculi number (test code = 9800-4) 3 Calculi size (test code = 9802-0) Various mm Calculi descrption (test code = 44640-7) See Note Specimen consists of three, various sized (1 mm to 9 mm),brown/tilley, irregular calculi fragments. Calculi composition (test code = 9795-6) See Note Calculi composed primarily of:10% calcium oxalate monohydrate,80% calcium oxalate dihydrate, and10% calcium phosphate (hydroxy- and carbonate- apatite).INTERPRETIVE INFORMATION: Calculi (Stone) analysisCalculi are the products of physiological processes that yield crystalline compounds in a matrix of biological compounds and blood. Matrix components are not reported. The clinically significant crystalline components identified in calculi specimens are reported. Gross description may not be consistent with composition determined by FTIR analysis. EER calculi (stone) analysis and photo (test code = 93364-6) See No te Access [employer] Enhanced Report using either link below: -Direct access: [email or web address] -Enter Username, Password: [email or web address] Username: [email or web address] Password: [email or web address] by [email or web address],[address] [place] [address] jdj.[employer], Alberto Mahmood MD, Lab. Director JARRED (test code = JARRED) [id number]-aURETER STONES [facility] Hospitalurgical pathology tewshpd5523-21-70 16:22:02* Test Item Value Reference Range Interpretation Comments Case number (test code = 7527392) [id number] Surgical pathology report (test code = 2255) See link below for PDF Lab Report Result status (test code = 8843420) This is Final Report for [id number] 5599-7 [facility] Pre/Post Xt3455-12-23 21:09:31* Test Item Value Reference Range Interpretation Comments Ventricular rate (test code = 253) 76 Atrial rate (test code = 255) 76 AL interval (test code = 266) 160 QRSD interval (test code = 260) 88 QT interval (test code = 264) 424 QTC interval (test code = 265) 477 P axis 1 (test code = 267) 33 QRS axis 1 (test code = 268) -4 T wave axis (test code = 270) 17 EKG impression (test code = 273) Normal sinus rhythm-M inimal voltage criteria for LVH, may be normal variant-Possible Anterior infarct , age undetermined- Abnormal ECG-No previous ECGs available- [facility] < 1 Loaw0602-50-50 15:12:23Hm Interface, Radiology Results - 08/15/2019 3:15 PM CDTIMPRESSION: C-armFluoroscopy under 1 hour was provided in the OR forthe referring physician. A radiologist was not present during the procedure. Refer to the Operative report issued by the performing provider for procedure details.Juan RfyluprqgXmkiba9041-70-83 14:00:49 Chase Chacko CRNA 08/15/2019 2:01 PMAirwayPerformed by: Chase Chacko CRNAAuthorized by: Chase Chacko CRNA Final Airway Type: Supraglottic airwayFinal LMA: UniqueLMA Size: 4Number of Attempts at A pproach: 1[facility] MethodistProthrombin time with DKA5413-44-88 12:29:30* Test Item Value Reference Range Interpretation Comments Prothrombin time (test code = 5902-2) 13.0 11.5- 14.5 sec INR (test code = 39226-7) 1.01 Fo r patients on anticoagulant therapy, reference ranges below:Indication: INR ValueTreatment of Venous Thrombosis, 2.0-3.0pulmonary emboli, or prophylaxisof a venous thrombosis, or systemic emboli.High dose, high risk patients 3.0-4.5with mechanical valves.NOTE: INR values over 3.0 are sometimes associated withgastrointestinal hemorrhage, especially values over 4.0. [place] ElleistCT Renal Stone Znouiyni0226-74-63 10:46:43Hm Interface, Radiology Results - 08/03/2019 10:49 AM CDTEXAMINATION: CT RENAL STONE PROTOCOLCLINICAL HISTORY: N20.1 Calculus of ureter, Urinary tract stone known no complications or risk factorsTECHNIQUE: Multiple axial images of the abdomen and pelvis were obtained without intravenous administration of iodinated contrast. Sagittal and coronal computerized reformatted images were also obtained. The lack of intravenous contrast reduces the sensitivity of detecting solid organ disease.CT imaging was performed with iterative reconstruction ana luisa hniques and/or automated exposure control to reduce radiation dose.COMPARISON: CT abdomen and pelvis 06/30/2011FINDINGS:1.There is a 6 mm stone in the right dis margarita ureter just proximal to the ureterovesical junction, which does not cause hy dronephrosis. There is no left-sided urinary calculus is.2.A left upper renal po le cortical 13 mm round lesion, with a tiny focal calcification, is intrinsicall y hyperdense, indeterminate by imaging, although given that there was a cyst in this location measuring 7 mm in 2011, this most likely is a hyperdense cyst. CT urogram can be obtained for definitive characterization, but surveillance imagin g may be sufficient.3.There are multiple gallstones but no signs of cholecystiti s.4.The unenhanced liver, spleen, pancreas, and adrenals are normal.5.There is a large hiatal hernia. There is no bowel obstruction or inflammation. Mild sigmoid diverticulosis is present. The appendix is not definitely seen.6.No ascites or lymphadenopathy is seen.7.There is severe right hip arthritis situation which h as substantially progressed since 2010. There is moderate stable left hip arthri tis. Degenerative disc disease is present, and there is a chronic L1 wedge defor mity.IMPRESSION:Right distal ureteral 6 mm nonobstructing stone.[id number] [facility] BREAST COMPLETE [facility] LT/ID7383-84-09 10:56:01CLINICAL INDICATION: C50.011 Malignant neoplasm of nipple and areola, right female breastHISTORY: 78-year-old female who is status post right mastectomy in 2014 having also undergone chemotherapy and radiation therapy. Currently, the patient is asymptomatic.TECHNIQUE: Realtime and Doppler color breast imaging are performed on the [employer] ultrasound device . Radial and antiradial imaging is ac complished in all quadrants. Imaging of the axillary regions performed. This rep resents a unilateral left breast ultrasound exam.COMPARISON STUDY: No prior st udy. FINDINGS:Sonography of the left breast shows no hypoechoic mass, solid nodu le or cyst. The left axilla is also unremarkable.IMPRESSION:Incomplete evaluatio n. RECOMMENDATION: Obtain prior mammogram for comparison.Category: BIRADS 0 - In complete. Needs additional evaluation. For internal use only. P:0Mammo Digital Mammography Diagnostic, Jdohak6625-51-38 10:48:36Addendum created at 04/19/2019 9:22:02 AM:Addendum:Comments: Prior digital mammogram dated 08/03/2017 is now available for comparison to the current study dated 04/04/2019. The group of microcalcifications in the 12 o clock middle third pos ition of the left breast are stable and are felt to be benign. The overall archi tecture of the breast is unchanged as well.Impression:No evidence of malignancy. Recommendation:Follow up yearly mammography.Category: BIRADS 1 - Negative.N:12Ad dendum by: Shanda Matson, [facility] TULSALINICAL INDICATION: C50.919 Malignant neop lasm of unsp site of unspecified female breastHISTORY: 78-year-old female who i s status post right mastectomy in 2015 having also undergone chemotherapy and ra diation therapy. Currently, the patient is asymptomatic.MODALITY: Siemens Novat ion Full Field Digital MammographyTECHNIQUE: Digital acquisition of the left breast is performed on the ACR accredited Full Field Digital Mammography Unit. C omputer Assisted Detection (CAD) is then accomplished using [employer]. Full compression CC, MLO and LM views were obtained in addition to spot magnification CC and LM views.FINDINGS:COMPARISON STUDY: No prior study.There are scattered fibroglandular tissues in both breasts. A group of microcalcifications is noted in the 12 o clock, middle third position of the left breast. Comparison with pr ior studies is needed to determine if these are stable. No dominant mass, skin t hickening or architectural distortion is noted.Ultrasound findings: Sonography o f the left breast shows no hypoechoic mass, solid nodule or cyst. The left axill a is also unremarkable.IMPRESSION:Incomplete evaluation. RECOMMENDATION: Obtain prior studies for comparison.Category: BIRADS 0 - Incomplete. Needs additional e valuation. For internal use only. P:4Pzwrodgkpq8545-30-19 07:15:00* Test Item Value Reference Range Interpretation Comments Hemoglobin (test code = 47920-9) 9.6 12.0-16.0 L [facility] HospitalHematocrit2018-02-28 07:15:00* Test Item Value Reference Range Interpretation Comments Hematocrit (test code = 4544-3) 29.6 34.2-44.1 L [facility] HospitalWhite Blood Vehpt2354-84-11 10:57:00* Test Item Value Reference Range Interpretation Comments White Blood Count (test code = 6690-2) 6.87 4.8-10.8 [facility] HospitalRed Blood Vdarb6013-00-10 10:57:00* Test Item Value Reference Range Interpretation Comments Red Blood Count (test code = 789-8) 3.82 3.6-5.1 [facility] HospitalMean Corpuscular Jhbzbh5298-53-59 10:57:00* Test Item Value Reference Range Interpretation Comments Mean Corpuscular Volume (test code = 787-2) 95.0 81-99 [facility] HospitalMean Corpuscular Elthcdebxf8591-81-27 10:57:00* Test Item Value Reference Range Interpretation Comments Mean Corpuscular Hemoglobin (test code = 785-6) 31.2 28-32 [facility] HospitalMean Corpuscular Hemoglobin Concent 2017-12-26 10:57:00* Test Item Value Reference Range Interpretation Comments Mean Corpuscular Hemoglobin Concent (test code = 786-4) 32.8 31-35 [facility] HospitalRed Cell Distribution Pxgac7632-79-57 10:57:00* Test Item Value Reference Range Interpretation Comments Red Cell Distribution Width (test code = 80100-3) 13.0 11.7 -14.4 [facility] HospitalPlatelet Bzeyp3718-67-06 10:57:00* Test Item Value Reference Range Interpretation Comments Platelet Count (test code = 777-3) 309 140-360 [facility] HospitalNeutrophils (%) (Auto)2017-12-26 10:57:00 * Test Item Value Reference Range Interpretation Comments Neutrophils (%) (Auto) (test code = 64696-2) 54.6 38.7-80.0 [facility] HospitalLymphocytes (%) (Auto)2017-12-26 10:57:00 * Test Item Value Reference Range Interpretation Comments Lymphocytes (%) (Auto) (test code = 736-9) 29.4 18.0-39.1 [facility] HospitalMonocytes (%) (Auto)2017-12-26 10:57:00* Test Item Value Reference Range Interpretation Comments Monocytes (%) (Auto) (test code = 5905-5) 8.4 4.4-11.3 [facility] [facility]2017-12-26 10:57:00 * Test Item Value Reference Range Interpretation Comments Eosinophils (%) (Auto) (test code = 713-8) 6.4 0.0-6.0 [facility]2017-12-26 10:57:00* Test Item Value Reference Range Interpretation Comments Basophils (%) (Auto) (test code = 706-2) 0.9 0.0-1.0 [facility] %2017-12-26 10:57:00* Test Item Value Reference Range Interpretation Comments IM GRANULOCYTES % (test code = IM GRANULOCYTES %) 0.3 0.0- 1.0 [facility] # (Auto)2017-12-26 10:57:00* Test Item Value Reference Range Interpretation Comments Neutrophils # (Auto) (test code = 751-8) 3.8 2.1-6.9 [facility] # (Auto)2017-12-26 10:57:00* Test Item Value Reference Range Interpretation Comments Lymphocytes # (Auto) (test code = 80953-9) 2.0 1.0-3.2 [facility] (Auto)2017-12-26 10:57:00* Test Item Value Reference Range Interpretation Comments Monocytes # (Auto) (test code = 742-7) 0.6 0.2-0.8 [facility] (Auto)2017-12-26 10:57:00* Test Item Value Reference Range Interpretation Comments Eosinophils # (Auto) (test code = 711-2) 0.4 0.0-0.4 [facility] (Auto)2017-12-26 10:57:00* Test Item Value Reference Range Interpretation Comments Basophils # (Auto) (test code = 704-7) 0.1 0.0-0.1 [facility]Absolute Immature Granulocyte (auto 2017-12-26 10:57:00* Test Item Value Reference Range Interpretation Comments Absolute Immature Granulocyte (auto (ag t code = Absolute Immature Granulocyte (auto) 0.02 0-0.1 [facility] RIGHT 1-2 VIEWS [place] [address] Patient Name: GILBERT HELTON MR #: [id number] : 1940 Age/Sex: 77/F Req #: [id number] Adm Physician: Ordered by: MARIBEL ELLSWORTH MD Report #: [id number] Location: OR Room/Bed: Procedure: [id number] DX/KNEE RIGHT 1-2 VIEWS Exam D ate: 12/27/17 Exam Time: 0945 REPORT STATUS: Si gned PROCEDURE: X-RAY RIGHT KNEE, ONE OR TWO VIEWS COMPARISON: None. BO CATIONS: POST OP KNEE RIGHT FINDINGS: See conclusion. CONCLUS ION: Status post total right knee replacement with surrounding soft tissue swelling, air and aby consistent with recent surgery. No periprosthetic displaced fractures. Dictated by: Maribel Garza M.D. on 12/27/2017 at 10:13 Electronically approved by: Maribel Garza M.D. on 12/27/2017 at 10:13 Dictated By: MARIBEL GARZA MD 1013 Transcribed By: NIDIA on 12/27/17 1013 COPY TO: MARIBEL ELLSWORTH MD CHEST 2 VIEWS [place] [address] Patient Name: GILBERT HELTON MR #: [id number] : 1940 Age/Sex: 77/F Req #: [id number] Adm Physician: Ordered by: INDU VELEZ MD Report #: [id number] Location: OR Room/Bed: Procedure: [id number] DX/CHEST 2 VIEWS Exam Date: 0 12/26/17 Exam Time: 1105 REPORT STATUS: Signed PROCEDURE: Frontal and lateral views of the chest. COMPARISON: None. INDICATIONS: PRE-OPERATIVE CHEST XRAY FOR RIGHT KNEE SURGERY FI NDINGS: Lines/tubes: None. Lungs: The lungs are well inflated and valerie r. There is no evidence of pneumonia or pulmonary edema. Pleura: There is no pleural effusion or pneumothorax. Heart and mediastinum: The heart is normal in size. Rounded opacity with a lucent component along the superi or aspect is noted overlying the lower mediastinum likely represent a moderat e hiatal hernia. Bones/Soft tissues: Age indeterminate wedge deformity o f a lower thoracic or upper lumbar vertebral body. Multiple surgical clips overlie the right chest wall/axilla. Upper abdomen: Multiple calcificat ions overlie the anterior abdomen on lateral view possibly represent gallston es. IMPRESSION: 1. No acute cardiopulmonary disease. 2. Moderate-siz ed hiatal hernia. 3. Possible cholelithiasis. Consider correlation with right upper quadrant ultrasound. 4. Age-indeterminate wedge deformity of a lower thoracic or upper lumbar vertebral body. Dictated by: Rodney Bonner M.D. on 12/26/2017 at 11:32 Electronically approved by: Rodney ernst M.D. on 12/26/2017 at 11:32 Dictated By: RODNEY BONNER MD 1132 Transcribed By: IN E on 12/26/17 1132 COPY TO: INDU VELEZ MD
--- NOTE | 2020-03-31 13:27 | Operative Report ---
DATE OF PROCEDURE: 03/31/2020 SURGEON: Dong Chinchilla MD FILM HISTORIAN: Kingston Mcrae, certified PA. PREOPERATIVE DIAGNOSIS: Osteoarthritis, right hip. POSTOPERATIVE DIAGNOSIS: Osteoarthritis, right hip. PROCEDURE: Right total hip arthroplasty. INDICATIONS: The patient is an 79-year-old lady, who has severe arthritis in her right hip. She has failed conservative management and would like to proceed with a right total hip replacement. The hip has caused her to be severely immobile. She has been using wheelchair for the past 3 to 4 months. The risks and benefits of the procedure, and added challenges due to her limited mobility have all been discussed. She and her family state they understand and wish to proceed. DESCRIPTION OF PROCEDURE: The patient was brought to the operating room and given a spinal anesthetic. She received prophylactic antibiotics and tranexamic acid in the holding area. She was positioned in the left lateral decubitus position. Her right hip was prepped and draped in a sterile manner. A preoperative time-out was performed. A posterior approach was made to the right hip. Hemostasis was obtained with electrocautery. A Charnley self-retaining retractor was placed. Care was taken to avoid injury to the sciatic nerve. The posterior capsule was noted to be severely contracted. The capsule and short external rotators were released. The hip was dislocated and an oscillating saw was used to resect the femoral neck. As expected, bone quality was marginal. The socket was carefully exposed. Additional soft tissue releases were necessary. The true floor of the acetabulum was established. A large inflammatory synovitis was excised. Labral remnants were excised. The socket was sequentially reamed up to 53 mm, this accomplished bleeding hemispherical cancellous bone. The medial wall was thin, so a bone graft was taken from the femoral head and proximal femoral shaft, this was placed along the medial wall. A [employer] 54 mm outer diameter OsseoTi socket was impacted into place. On several occasions, the hip had been irrigated with a shower tip pulsatile lavage as well as a spray mixture of diluted vancomycin and polymyxin spray. Fixation was augmented with a 30 mm cancellous screw placed into the ilium. A highly cross-linked polyethylene liner with a 36 mm inner diameter was then seated into place and impacted. Care was taken to make sure that there was no soft tissue interposition. The hip was further irrigated. A portion of a 100 mL premixed pericapsular MCIHELLE injection was placed around the socket. The socket was packed with a moistly soaked lap sponge and attention was directed towards the proximal femur. The Taperloc broaches were impacted. A size 12 stem had good canal fill and stability. A trial reduction was performed. A standard 36 mm head revealed appropriate restorationism of limb length and excellent stability. The trial implants were removed. The femoral canal was further irrigated. The stem was seated. A standard neck and 36 mm ceramic head were placed onto the stem and impacted into place. A final reduction was performed. The remainder of the pericapsular injection was placed into this more superficial soft tissue. The posterior capsule was repaired with interrupted #2 Ethibond. A 500 mg of vancomycin powder was sprinkled into the wound. The deep fascia was closed with interrupted #2 Ethibond. The skin was closed with subcuticular Vicryl and aby. A sterile Aquacel bandage was applied. The patient was returned to the supine position and transported to the recovery room in stable condition. Estimated blood loss was 50 mL. At the end of the procedure, all needle and sponge counts were correct. Dong Chinchilla MD DR/KIRSTEN /[id number] DEBBIE
[2020-03-31] MEDS ORDERED: FENTANYL CITRATE/PF 100MCG/2 ML INJ ONE (13:57)
[2020-03-31] MEDS ORDERED: MIDAZOLAM HCL 2 MG/2 ML VIAL ONE (13:57)
--- NOTE | 2020-03-31 14:15 | Diagnostic Imaging Report ---
EXAM: PELVIS AP 1-2 VIEWS DATE: 03/31/2020 12:47 PM INDICATION: Osteoarthritis, postop COMPARISON: None FINDINGS: There are postsurgical changes from recent right hip arthroplasty. Hardware appears intact and in anatomic alignment. There is no evidence for acute fracture or dislocation. Advanced degenerative changes are noted within the left hip. No focal lytic or blastic abnormality is identified. There is a small amount of surrounding subcutaneous gas present, likely postoperative. Overlying skin aby noted. IMPRESSION: Expected postsurgical changes from recent right hip arthroplasty. Signed by: Dr. Ed Montiel MD on 03/31/2020 2:12 PM
--- NOTE | 2020-03-31 15:33 | NUR ---
DR VELÁZQUEZ OFFICE PREARRANGED FOLLOWING DISCHARGE PLAN OF: HOME WITH [facility] [id number] [facility] PHONE NUMBER [phone] [employer] JUSTINE NUMBER FOR EMERGENCY CONTACT IS [phone] [facility] CONFIRMED WITH [facility] [phone] DME 3 IN ONE COMMODE PROVIDED BY [employer] MARIAM [phone]. PT STATES ALREADY HAS WALKER AT HOME AND A RISER ON TOILET WELL A WHEELCHAIR YO SIGNED AND ON CHART COPY LEFT WITH PATIENT GAVE CARD FOR QUESTIONS AND OR CONCERNS.
[2020-03-31 16:18] VITALS: BP 128/66
[2020-03-31] MEDS ORDERED: ACETAMINOPHEN 1000 MG/100 ML IV PRN (17:00)
[2020-03-31] MEDS: SODIUM CHLORIDE 0.9% 1000ML 1,000 ML IV SCH ×2 (17:29→22:00)
[2020-03-31] MEDS: ASPIRIN 325 MG TAB PO SCH (17:29)
[2020-03-31] MEDS: CELECOXIB 100 MG CAP PO SCH (17:29)
[2020-03-31] MEDS: CEFAZOLIN SOD 1 GM/NS 50ML 50 ML IV SCH (17:30)
[2020-03-31 18:48] VITALS: BP 128/66
[2020-03-31 20:00] VITALS: BP 104/65
[2020-03-31] MEDS ORDERED: ZOLPIDEM TARTRATE 5 MG TAB PO PRN (21:00)
[2020-04-01] VITALS: BP 114/54
[2020-04-01] MEDS: CEFAZOLIN SOD 1 GM/NS 50ML 50 ML IV SCH ×2 (02:00→11:12)
[2020-04-01] MEDS: HYDROCODONE/APAP 5MG-325MG TAB PO PRN ×2 (02:28→09:34)
[2020-04-01] MEDS: ONDANSETRON HCL INJ 2MG/ML 2ML 2 MG/ML VIAL IV PRN ×2 (03:49→09:29)
[2020-04-01 04:00] VITALS: BP 115/57
[2020-04-01 05:50] LABS: HEMATOCRIT 28.9 % (34.2-44.1); HEMOGLOBIN 9.2 g/dL (12.0-16.0)
--- NOTE | 2020-04-01 06:07 | Consultation ---
DATE OF CONSULTATION: REASON FOR CONSULTATION: Postop medical management. HISTORY OF PRESENT ILLNESS: The patient is an 79-year-old lady, status post right hip arthroplasty, who is doing well postoperatively with minimal pain. REVIEW OF SYSTEMS: Denies any chest pain, fever, chills, nausea, vomiting, headache, shortness of breath, or dizziness. PAST MEDICAL HISTORY: Significant for hypertension, hyperlipidemia, and osteoarthritis. MEDICATIONS: See MAR. ALLERGIES: NONE. SOCIAL HISTORY: Retired. . Nonsmoker. FAMILY HISTORY: Cancer. PHYSICAL EXAMINATION: VITAL SIGNS: Temperature 98.2, pulse 71, blood pressure 114/54, and saturations 98% on room air. GENERAL: She is no apparent distress, lying in bed. NECK: Supple. No lymphadenopathy. CARDIOVASCULAR: Regular rate and rhythm. LUNGS: Clear to auscultation bilaterally. ABDOMEN: Good bowel sounds. Soft, nontender. EXTREMITIES: No clubbing or cyanosis. Right hip shows no bandage seepage. NEUROLOGIC: Nonfocal. Moves all extremities x4. ASSESSMENT/PLAN: 1. Status post right hip arthroplasty. We will continue postoperative care. 2. Hip pain. Continue with postoperative pain control. 3. Anemia. We will check CBC. 4. Hypertension. Continue with current care and monitoring. 5. Reflux disease. We will continue with medication. Please see hospital chart for full details. MD VADIM De Santiago/KIRSTEN /[id number]
--- NOTE | 2020-04-01 07:00 | NUR ---
The pt. is in bed awake and and distress free. There is a pillow between the knees to present inward rotation of the hip. The pt. denies pain or discomfort currently.
[2020-04-01 07:54] VITALS: BP 122/57
[2020-04-01 07:59] VITALS: BP 122/57
[2020-04-01] MEDS: SODIUM CHLORIDE 0.9% 1000ML 1,000 ML IV SCH (08:00)
[2020-04-01] MEDS: ASPIRIN 325 MG TAB PO SCH (09:28)
[2020-04-01] MEDS: CELECOXIB 100 MG CAP PO SCH (09:28)
[2020-04-01 12:13] VITALS: BP 105/51
[2020-04-01] MEDS ORDERED: ONDANSETRON HCL 4 MG ORAL DISINTEGRATING TAB PO PRN (13:00)
--- NOTE | 2020-04-01 13:20 | NUR ---
The pt. was provided discharge information and all DME prior to transport home in stable condition. No prescriptions were given as the dr called prescriptio to her pharmacy.
== END 2020-04-01 13:17 | disposition home health service (06) ==
LOC: OR 06:34 → PACU V 11:49 → MED/SURG 15:02
PROVIDERS: ADMIT Specialist; ATTEND Specialist
DX: M16.11 Unilateral primary osteoarthritis, right hip (principal); Z96.651 Presence of right artificial knee joint; I10 Essential (primary) hypertension; E78.00 Pure hypercholesterolemia, unspecified; Z01.812 Encounter for preprocedural laboratory examination; Z01.818 Encounter for other preprocedural examination; Z11.59 Encounter for screening for other viral diseases; D64.9 Anemia, unspecified; K21.9 Gastro-esophageal reflux disease without esophagitis
CPT/HCPCS: 27130; C1776; 36415; 71046; 72170; 85014; 85018; 85025; 86850; 86900; 86920; 87635; 97139; C1713; C1734; G0378; J0171; J0690; J1100; J1885; J2250; J2405; J2795; J3010; J3370; J7030; J7040